=== PATIENT | female | born 1985 | race African-American/Black ===

== ENCOUNTER 2020-11-11 00:07 | Inpatient (IN) | payer BC ==
[2020-11-11] MEDS ORDERED: Sodium Chloride 0.9% 2.5 ML Syringe FLUSH PRN (00:59)
[2020-11-11] MEDS ORDERED: Lidocaine 1% 50 ML MDV INJECT PRN (00:59)
[2020-11-11] MEDS ORDERED: Butorphanol 1 MG/ML SDV IVPUSH PRN (00:59)
[2020-11-11] MEDS ORDERED: Misoprostol 200 MCG Tab PO PRN (00:59)
[2020-11-11] MEDS ORDERED: Terbutaline 1 MG/ML SDV SUBCUT PRN (00:59)
[2020-11-11] MEDS ORDERED: Water For Irrigation,Sterile 1,000 ML Container IRR PRN (00:59)
[2020-11-11] MEDS ORDERED: Nalbuphine 10 MG/1 ML Vial IVPUSH PRN (00:59)
[2020-11-11] MEDS ORDERED: Sodium Chloride 0.9% 10 ML SDV IV PRN (00:59)
[2020-11-11] MEDS ORDERED: Methylergonovine 0.2 MG/1 ML Amp IM PRN ×2 (00:59→10:54)
[2020-11-11] MEDS ORDERED: Sodium Chloride 0.9% 10 ML Syringe FLUSH PRN (00:59)
[2020-11-11] MEDS ORDERED: Tranexamic Acid 1,000 MG in Sodium Chloride 0.9% 100 ML IV PRN ×2 (00:59→10:54)
[2020-11-11] MEDS ORDERED: Carboprost Tromethamine 250 MCG/1 ML Amp IM PRN (00:59)
[2020-11-11] MEDS ORDERED: Oxytocin/0.9 % Sodium Chloride 30 UNIT/500 ML BAG IV SCH ×3 (01:00→08:45)
[2020-11-11] MEDS: Misoprostol 25 MCG (1/4 of 100 MCG) Tab VAG PRN ×2 (01:32→05:35)
[2020-11-11] MEDS: Misoprostol 25 MCG (1/4 of 100 MCG) Tab PO PRN ×2 (01:32→05:35)
[2020-11-11] MEDS: Lactated Ringers 1,000 ML IV SCH ×2 (05:43→08:58)
--- NOTE | 2020-11-11 08:03 | PCM.LDHP ---
L&D History of Present Illness - General Date of Service: 11/11/20 Admit Problem/Dx: Patient Status Order with Admit Dx/Problem 11/11/20 00:59 Patient Status [ADT] Routine Admission Diagnosis/Problem Admission Diagnosis/Problem 11/11/20 07:57 presenting to L&D at 38 1/7 weeks (DEMETRIO by LMP and confirmed with ultrasound) for IOL due to chronic hypertension well controlled with Labetolol 100 mg BID. She transferred to our practice from [place] at approximately 20 weeks. Patient has a history of IUFD at 28 weeks due to suspected preeclampsia and corresponding IUGR. This has been uneventful. B+Rubella immune, GBS negative. Vertex by [facility]. 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 - Infectious Disease History Infectious Disease History: Reports: Chicken Pox Social & Family History - Family History Family Medical History: Unobtainable - Tobacco Use Tobacco Use Status *Q: Never Tobacco User Second Hand Smoke Exposure: No H&P Review of Systems - Review of Systems: Review Of Systems: See Below General: Reports: No Symptoms HEENT: Reports: No Symptoms Pulmonary: Reports: No Symptoms Cardiovascular: Reports: No Symptoms Gastrointestinal: Reports: No Symptoms Genitourinary: Reports: No Symptoms Musculoskeletal: Reports: No Symptoms Skin: Reports: No Symptoms Psychiatric: Reports: No Symptoms Neurological: Reports: No Symptoms Hematologic/Lymphatic: Reports: No Symptoms Immunologic: Reports: No Symptoms L&D Exam - Exam Exam: See Below - Vital Signs Weight: 193 lb - OB Specific Movement: Active Heart Tones: Present Heart Rate (FHR) Variability: Moderate (6-25 bmp) Presentation: Vertex - Chow Score Chow Score Cervix Position: Posterior Chow Score Consistency: Medium Chow Score Effacement: 31-50% Chow Score Dilation: 1-2 cm Chow Score Infant's Station: -2 Chow Score Total: 4 - Exam General: Alert, Oriented, Cooperative Lungs: Normal Respiratory Effort Cardiovascular: Regular Rate, Regular Rhythm GI/Abdominal Exam: Soft, Non-Tender Rectal Exam: Deferred Genitourinary: Deferred Back Exam: Normal Inspection, Full Range of Motion Extremities: Normal Inspection, Normal Range of Motion, Non-Tender, Normal Capillary Refill Skin: Warm, Dry, Intact Neurological: Strength Equal Bilateral, Normal Gait, Normal Speech, Normal Tone, Sensation Intact Psychiatric: Alert, Normal Affect, Normal Mood - Patient Data Lab Results Last 24 hrs: Laboratory Results - last 24 hr 11/11/20 11/11/20 11/11/20 Range/Units 00:40 00:40 00:42 WBC 7.37 (4.0-11.0) K/uL RBC 4.41 (4.30-5.90) M/uL Hgb 11.0 L (12.0-16.0) g/dL Hct 34.1 L (36.0-46.0) % MCV 77.3 L (80.0-98.0) fL MCH 24.9 L (27.0-32.0) pg MCHC 32.3 (31.0-37.0) g/dL RDW Std Deviation 44.6 (28.0-62.0) fl RDW Coeff of Kristi 16 H (11.0-15.0) % Plt Count 322 (150-400) K/uL MPV 9.60 (7.40-12.00) fL SARS-CoV-2 RNA (PATRICK) NEGATIVE (NEGATIVE) Blood Type B POSITIVE Antibody Screen NEGATIVE Result Diagrams: 11/11/20 00:40 - Problem List (1) Supervision of normal IUP (intrauterine ) in multigravida SNOMED Code(s): 107119900, 689831312, 689208306 ICD Code: Z34.80 - ENCOUNTER FOR SUPRVSN OF NORMAL , UNSP TRIMESTER Status: Acute Priority: High Current Visit: Yes Qualifiers: Trimester: third trimester Qualified Code(s): Z34.83 - Encounter for supervision of other normal , third trimester (2) Chronic hypertension affecting SNOMED Code(s): 73210637 ICD Code: O10.919 - UNSP PRE-EXISTING HTN COMP , UNSP TRIMESTER Status: Acute Priority: High Current Visit: Yes (3) History of IUFD SNOMED Code(s): 09819434068798889 ICD Code: Z87.59 - PERSONAL HISTORY OF COMP OF PREG, CHLDBRTH AND THE PUERP Status: Acute Priority: High Current Visit: Yes Problem List Initiated/Reviewed/Updated: Yes Orders Last 24hrs: Active Orders 24 hr Category Date Time Status Patient Status [ADT] Routine ADT 11/11/20 00:59 Active Bedrest Bathroom Privileges [RC] ASDIRECTED Care 11/11/20 00:59 Active Communication Order [RC] ASDIRECTED Care 11/11/20 00:59 Active Communication Order [RC] ASDIRECTED Care 11/11/20 00:59 Active Communication Order [RC] ASDIRECTED Care 11/11/20 00:59 Active Heart Tones [RC] CONTINUOUS Care 11/11/20 00:59 Active Non Stress Test [RC] PER UNIT ROUTINE Care 11/11/20 00:59 Active May Shower [RC] ASDIRECTED Care 11/11/20 00:59 Active Notify Provider [RC] PRN Care 11/11/20 00:59 Active Notify Provider [RC] PRN Care 11/11/20 00:59 Active Notify Provider [RC] PRN Care 11/11/20 00:59 Active Notify Provider [RC] STAT Care 11/11/20 00:59 Active Oxygen Therapy [RC] ASDIRECTED Care 11/11/20 00:59 Active Up ad Evette [RC] ASDIRECTED Care 11/11/20 00:59 Active Vaginal Exam [RC] PRN Care 11/11/20 00:59 Active Vaginal Exam [RC] PRN Care 11/11/20 00:59 Active Vital Signs [RC] PER UNIT ROUTINE Care 11/11/20 00:59 Active Vital Signs [RC] PER UNIT ROUTINE Care 11/11/20 00:59 Active RPR (SYPHILIS SERO) W/ RFLX [REF] Routine Lab 11/11/20 00:40 Received Butorphanol [Stadol] Med 11/11/20 00:59 Active 1 mg IVPUSH Q1H PRN Carboprost Tromethamine [Hemabate DS] Med 11/11/20 00:59 Active 250 mcg IM ASDIRECTED PRN Lactated Ringers [Ringers, Lactated] 1,000 ml Med 11/11/20 01:00 Active IV ASDIRECTED Lidocaine 1% [Xylocaine 1%] Med 11/11/20 00:59 Active 50 ml INJECT ONETIME PRN Methylergonovine [Methergine] Med 11/11/20 00:59 Active 0.2 mg IM ASDIRECTED PRN Nalbuphine [Nubain] Med 11/11/20 00:59 Active 10 mg IVPUSH Q1H PRN Oxytocin/0.9 % Sodium Chloride [Oxytocin 30 Unit/500 ML Med 11/11/20 01:00 Active -NS] 30 unit in 500 ml IV TITRATE Oxytocin/0.9 % Sodium Chloride [Oxytocin 30 Unit/500 ML Med 11/11/20 01:00 Active -NS] 30 unit in 500 ml IV TITRATE Sodium Chloride 0.9% [Normal Saline] Med 11/11/20 00:59 Active 10 ml IV ASDIRECTED PRN Sodium Chloride 0.9% [Saline Flush] Med 11/11/20 00:59 Active 10 ml FLUSH ASDIRECTED PRN Sodium Chloride 0.9% [Saline Flush] Med 11/11/20 00:59 Active 2.5 ml FLUSH ASDIRECTED PRN Terbutaline [Brethine] Med 11/11/20 00:59 Active 0.25 mg SUBCUT ASDIRECTED PRN Tranexamic Acid [Cyklokapron] 1,000 mg Med 11/11/20 00:59 Active Sodium Chloride 0.9% [Normal Saline] 100 ml IV ONETIME Water For Irrigation,Sterile [Sterile Water for Med 11/11/20 00:59 Active Irrigation] 1,000 ml IRR ASDIRECTED PRN miSOPROStoL [Cytotec] Med 11/11/20 00:59 Active 200 mcg PO ONETIME PRN miSOPROStoL [Cytotec] Med 11/11/20 00:59 Active 25 mcg PO Q4H PRN miSOPROStoL [Cytotec] Med 11/11/20 00:59 Active 25 mcg VAG Q4H PRN Scalp Electrode [WOMSER] Per Unit Routine Oth 11/11/20 00:59 Ordered Medication Administration Instruction [OM.PC] Q3H Oth 11/11/20 01:00 Ordered Peripheral IV Insertion Adult [OM.PC] Routine Oth 11/11/20 00:59 Ordered Resuscitation Status Routine Resus Stat 11/11/20 00:59 Ordered Medication Orders Butorphanol Tartrate (Butorphanol 1 Mg/Ml Sdv) 1 mg IVPUSH Q1H PRN PRN Reason: Pain Carboprost Tromethamine (Carboprost Tromethamine 250 Mcg/1 Ml Amp) 250 mcg IM ASDIRECTED PRN PRN Reason: Post Hemorrhage Oxytocin/Sodium Chloride (Oxytocin 30 Unit/500 Ml-Ns) 30 unit in 500 mls @ 2 mls/hr IV TITRATE RABIA; Protocol Lactated Ringer's (Ringers, Lactated) 1,000 mls @ 150 mls/hr IV ASDIRECTED RABIA Last Admin: 11/11/20 05:43 Dose: 150 mls/hr Documented by: CORNELIUS Oxytocin/Sodium Chloride (Oxytocin 30 Unit/500 Ml-Ns) 30 unit in 500 mls @ 500 mls/hr IV TITRATE RABIA Tranexamic Acid 1,000 mg/ (Sodium Chloride) 110 mls @ 660 mls/hr IV ONETIME PRN PRN Reason: Bleeding Lidocaine HCl (Lidocaine 1% 50 Ml Mdv) 50 ml INJECT ONETIME PRN PRN Reason: Laceration repair Methylergonovine Maleate (Methylergonovine 0.2 Mg/1 Ml Amp) 0.2 mg IM ASDIRECTED PRN PRN Reason: Post Hemorrhage Misoprostol (Misoprostol 25 Mcg (1/4 Of 100 Mcg) Tab) 25 mcg VAG Q4H PRN PRN Reason: Cervical Ripening Last Admin: 11/11/20 05:35 Dose: 25 mcg Documented by: Admin: 11/11/20 01:32 Dose: 25 mcg Documented by: CORNELIUS Misoprostol (Misoprostol 200 Mcg Tab) 200 mcg PO ONETIME PRN PRN Reason: Post Hemorrhage Misoprostol (Misoprostol 25 Mcg (1/4 Of 100 Mcg) Tab) 25 mcg PO Q4H PRN PRN Reason: Cervical Ripening Last Admin: 11/11/20 05:35 Dose: 25 mcg Documented by: Admin: 11/11/20 01:32 Dose: 25 mcg Documented by: CORNELIUS Nalbuphine HCl (Nalbuphine 10 Mg/1 Ml Vial) 10 mg IVPUSH Q1H PRN PRN Reason: Pain (severe 7-10) Sodium Chloride (Sodium Chloride 0.9% 10 Ml Syringe) 10 ml FLUSH ASDIRECTED PRN PRN Reason: Keep Vein Open Sodium Chloride (Sodium Chloride 0.9% 2.5 Ml Syringe) 2.5 ml FLUSH ASDIRECTED P RN PRN Reason: Keep Vein Open Sodium Chloride (Sodium Chloride 0.9% 10 Ml Sdv) 10 ml IV ASDIRECTED PRN PRN Reason: IV Use Sterile Water (Water For Irrigation,Sterile 1,000 Ml Container) 1,000 ml IRR ASDIRECTED PRN PRN Reason: delivery Terbutaline Sulfate (Terbutaline 1 Mg/Ml Sdv) 0.25 mg SUBCUT ASDIRECTED PRN PRN Reason: Tacysystole Assessment/Plan Comment:: Admit A: presenting to L&D at 38 1/7 weeks (DMEETRIO by LMP and confirmed with ultrasound) for IOL due to chronic hypertension well controlled with Labetolol 100 mg BID. She transferred to our practice from [place] at approximately 20 weeks. Patient has a history of IUFD at 28 weeks due to suspected preeclampsia and corresponding IUGR. This has been uneventful. B+Rubella immune, GBS negative. Vertex by [facility]. Upon presentation, SVE noted 1cm/40%/-2, medium, posterior per nurse report P: Anticipate ; cytotec to pitocin PRN; epidural PRN; Dr. Fitch updated.
[2020-11-11] MEDS ORDERED: ceFAZolin 2 GM in Premix Bag 1 BAG IV ONE (08:42)
[2020-11-11] MEDS ORDERED: Citric Acid/Sodium Citrate Solution 30 ML Cup PO ONE (08:42)
[2020-11-11] MEDS ORDERED: Sodium Chloride 0.9% 20 ML ONE (08:48)
[2020-11-11] MEDS ORDERED: Oxytocin 10 Units/1 ML SDV ONE (08:48)
[2020-11-11] MEDS ORDERED: Morphine PF 10 MG/10 ML SDV ONE (08:48)
[2020-11-11] MEDS ORDERED: ceFAZolin 1 GM Vial ONE (08:48)
[2020-11-11] MEDS ORDERED: Famotidine 20 MG/2 ML SDV ONE (09:08)
--- NOTE | 2020-11-11 09:18 | PCM.PREANE ---
Preanesthetic Assessment - Procedure Proposed Procedure: - Anesthesia/Transfusion/Family Hx Anesthesia History: No Prior Anesthesia Transfusion History: No Prior Transfusion(s) - Review of Systems General: No Symptoms Pulmonary: No Symptoms Cardiovascular: No Symptoms Gastrointestinal: No Symptoms Neurological: No Symptoms Other: Reports: None - Physical Assessment NPO Status Date: 11/11/20 NPO Status Time: 00:00 Height: 5 ft 4.17 in Weight: 87.543 kg ASA Class: 2E Mental Status: Alert & Oriented x3 Airway Class: Mallampati = 1 Dentition: Reports: Normal Dentition ROM/Head Extension: Full Lungs: Clear to Auscultation, Normal Respiratory Effort Cardiovascular: Regular Rate, Regular Rhythm - Lab Values: Laboratory Last Values WBC 7.37 K/uL (4.0-11.0) 11/11/20 00:40 RBC 4.41 M/uL (4.30-5.90) 11/11/20 00:40 Hgb 11.0 g/dL (12.0-16.0) L 11/11/20 00:40 Hct 34.1 % (36.0-46.0) L 11/11/20 00:40 MCV 77.3 fL (80.0-98.0) L 11/11/20 00:40 MCH 24.9 pg (27.0-32.0) L 11/11/20 00:40 MCHC 32.3 g/dL (31.0-37.0) 11/11/20 00:40 RDW Std Deviation 44.6 fl (28.0-62.0) 11/11/20 00:40 RDW Coeff of Kristi 16 % (11.0-15.0) H 11/11/20 00:40 Plt Count 322 K/uL (150-400) 11/11/20 00:40 MPV 9.60 fL (7.40-12.00) 11/11/20 00:40 SARS-CoV-2 RNA (PATRICK) NEGATIVE (NEGATIVE) 11/11/20 00:42 Blood Type B POSITIVE 11/11/20 00:40 Antibody Screen NEGATIVE 11/11/20 00:40 - Allergies Allergies/Adverse Reactions: Allergies Allergy/AdvReac Type Severity Reaction Status Date / Time No Known Allergies Allergy Verified 11/05/20 15:16 - Anesthesia Plan Pre-Op Medication Ordered: Antacids, Beta Yanet Beta Yanet: Labetalol - Acknowledgements Anesthesia Type Planned: Spinal Pt an Appropriate Candidate for the Planned Anesthesia: Yes Alternatives and Risks of Anesthesia Discussed w Pt/Guardian: Yes Pt/Guardian Understands and Agrees with Anesthesia Plan: Yes PreAnesthesia Questionnaire - Past Health History Medical/Surgical History: Denies Medical/Surgical History HEENT History: Reports: None Cardiovascular History: Reports: Hypertension Respiratory History: Reports: None Gastrointestinal History: Reports: None Genitourinary History: Reports: None 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: , 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 Musculoskeletal History: Reports: None Neurological History: Reports: None Psychiatric History: Reports: None Endocrine/Metabolic History: Reports: None Immunologic History: Reports: None - Infectious Disease History Infectious Disease History: Reports: Chicken Pox - Past Surgical History Other Surgical History Comment: none - SUBSTANCE USE Tobacco Use Status *Q: Never Tobacco User Second Hand Smoke Exposure: No - HOME MEDS Home Medications: Home Meds Labetalol [Normodyne] 100 mg PO BID 11/11/20 [History] - CURRENT (IN HOUSE) MEDS Current Meds: Current Medications Butorphanol Tartrate (Butorphanol 1 Mg/Ml Sdv) 1 mg IVPUSH Q1H PRN PRN Reason: Pain Carboprost Tromethamine (Carboprost Tromethamine 250 Mcg/1 Ml Amp) 250 mcg IM ASDIRECTED PRN PRN Reason: Post Hemorrhage Oxytocin/Sodium Chloride (Oxytocin 30 Unit/500 Ml-Ns) 30 unit in 500 mls @ 2 mls/hr IV TITRATE RABIA; Protocol Lactated Ringer's (Ringers, Lactated) 1,000 mls @ 150 mls/hr IV ASDIRECTED RABIA Last Admin: 11/11/20 08:58 Dose: 999 mls/hr Documented by: Oxytocin/Sodium Chloride (Oxytocin 30 Unit/500 Ml-Ns) 30 unit in 500 mls @ 500 mls/hr IV TITRATE RABIA Tranexamic Acid 1,000 mg/ (Sodium Chloride) 110 mls @ 660 mls/hr IV ONETIME PRN PRN Reason: Bleeding Oxytocin/Sodium Chloride (Oxytocin 30 Unit/500 Ml-Ns) 30 unit in 500 mls @ 250 mls/hr IV TITRATE RABIA Lidocaine HCl (Lidocaine 1% 50 Ml Mdv) 50 ml INJECT ONETIME PRN PRN Reason: Laceration repair Methylergonovine Maleate (Methylergonovine 0.2 Mg/1 Ml Amp) 0.2 mg IM ASDIRECTED PRN PRN Reason: Post Hemorrhage Misoprostol (Misoprostol 25 Mcg (1/4 Of 100 Mcg) Tab) 25 mcg VAG Q4H PRN PRN Reason: Cervical Ripening Last Admin: 11/11/20 05:35 Dose: 25 mcg Documented by: Misoprostol (Misoprostol 200 Mcg Tab) 200 mcg PO ONETIME PRN PRN Reason: Post Hemorrhage Misoprostol (Misoprostol 25 Mcg (1/4 Of 100 Mcg) Tab) 25 mcg PO Q4H PRN PRN Reason: Cervical Ripening Last Admin: 11/11/20 05:35 Dose: 25 mcg Documented by: Nalbuphine HCl (Nalbuphine 10 Mg/1 Ml Vial) 10 mg IVPUSH Q1H PRN PRN Reason: Pain (severe 7-10) Sodium Chloride (Sodium Chloride 0.9% 10 Ml Syringe) 10 ml FLUSH ASDIRECTED PRN PRN Reason: Keep Vein Open Sodium Chloride (Sodium Chloride 0.9% 2.5 Ml Syringe) 2.5 ml FLUSH ASDIRECTED PRN PRN Reason: Keep Vein Open Sodium Chloride (Sodium Chloride 0.9% 10 Ml Sdv) 10 ml IV ASDIRECTED PRN PRN Reason: IV Use Sterile Water (Water For Irrigation,Sterile 1,000 Ml Container) 1,000 ml IRR ASDIRECTED PRN PRN Reason: delivery Terbutaline Sulfate (Terbutaline 1 Mg/Ml Sdv) 0.25 mg SUBCUT ASDIRECTED PRN PRN Reason: Tacysystole Discontinued Medications Cefazolin Sodium (Cefazolin 1 Gm Vial) Confirm Administered Dose 2 gm .ROUTE .STK-MED ONE Stop: 11/11/20 08:49 Citric Acid/Sodium Citrate (Citric Acid/Sodium Citrate Solution 30 Ml Cup) 30 ml PO ONETIME ONE Stop: 11/11/20 08:43 Famotidine (Famotidine 20 Mg/2 Ml Sdv) Confirm Administered Dose 20 mg .ROUTE .STK-MED ONE Stop: 11/11/20 09:09 Cefazolin Sodium/Dextrose 2 gm (/ Premix) 50 mls @ 100 mls/hr IV ONETIME ONE Stop: 11/11/20 09:11 Sodium Chloride (Normal Saline) Confirm Administered Dose 20 mls @ as directed .ROUTE .STK-MED ONE Stop: 11/11/20 08:49 Morphine Sulfate (Morphine Pf 10 Mg/10 Ml Sdv) Confirm Administered Dose 10 mg .ROUTE .STK-MED ONE Stop: 11/11/20 08:49 Oxytocin (Oxytocin 10 Units/1 Ml Sdv) Confirm Administered Dose 20 unit .ROUTE .STK-MED ONE Stop: 11/11/20 08:49
[2020-11-11] MEDS ORDERED: Octyl 2-Cyanoacrylate 1 Tube ONE (10:45)
[2020-11-11] MEDS ORDERED: Bisacodyl 10 MG Supp RECTAL PRN (10:54)
[2020-11-11] MEDS ORDERED: Lanolin 100% Cream 7 GM Tube TOP PRN (10:54)
[2020-11-11] MEDS ORDERED: Ondansetron 4 MG/2 ML SDV IVPUSH PRN (10:54)
[2020-11-11] MEDS ORDERED: Oxytocin 10 Units/1 ML SDV IM PRN (10:54)
[2020-11-11] MEDS ORDERED: Acetaminophen/oxyCODONE 325-5 MG Tab PO PRN (10:54)
[2020-11-11] MEDS ORDERED: Misoprostol 200 MCG Tab RECTAL PRN (10:54)
--- NOTE | 2020-11-11 10:58 | PCM.OPNOTE ---
- General Post-Op/Procedure Note Date of Surgery/Procedure: 11/11/20 Operative Procedure(s): Primary C/section. Pre Op Diagnosis: IUPterm Breech presentation. Post-Op Diagnosis: Same Anesthesia Technique: Spinal Primary Surgeon: Ryan Fitch Fuel Injection Servicer: Sepideh Devlin EBL in mLs: 900 Complications: None Condition: Good Free Text/Narrative:: Intake & Output 11/10/20 11/11/20 11/11/20 22:59 06:59 14:59 Intake Total 1000 Balance 1000
[2020-11-11] MEDS ORDERED: Lactated Ringers 1,000 ML IV SCH (11:00)
[2020-11-11] MEDS: Ketorolac 30 MG/ML SDV IVPUSH SCH ×3 (11:25→23:16)
--- NOTE | 2020-11-11 11:35 | PCM.POSTAN ---
POST ANESTHESIA ASSESSMENT - MENTAL STATUS Mental Status: Alert, Oriented - VITAL SIGNS Vital Signs: see PIP charting - RESPIRATORY Respiratory Status: Respiratory Rate WNL, Airway Patent, O2 Saturation Stable - CARDIOVASCULAR CV Status: Pulse Rate WNL, Blood Pressure Stable - GASTROINTESTINAL GI Status: No Symptoms - PAIN Pain Score: 0 - POST OP HYDRATION Hydration Status: Adequate & Stable
[2020-11-11] MEDS ORDERED: Nalbuphine 10 MG/1 ML Vial IM PRN (11:43)
[2020-11-11] MEDS: diphenhydrAMINE 50 MG/ML SDV IVPUSH PRN (14:26)
[2020-11-11] MEDS: Docusate Sodium 100 MG Cap PO SCH (21:31)
[2020-11-12] MEDS: Ketorolac 30 MG/ML SDV IVPUSH SCH ×2 (04:56→10:51)
[2020-11-12] MEDS: diphenhydrAMINE 50 MG/ML SDV IVPUSH PRN (05:04)
[2020-11-12] MEDS ORDERED: Simethicone 80 MG Tab.Chew PO ONE (08:30)
[2020-11-12] MEDS: Docusate Sodium 100 MG Cap PO SCH ×2 (08:49→21:39)
--- NOTE | 2020-11-12 09:26 | PCM.PNPP ---
- General Info Date of Service: 11/12/20 Functional Status: Reports: Pain Controlled - Review of Systems General: Reports: No Symptoms HEENT: Reports: No Symptoms Pulmonary: Reports: No Symptoms Cardiovascular: Reports: No Symptoms Gastrointestinal: Reports: No Symptoms Genitourinary: Reports: No Symptoms Musculoskeletal: Reports: No Symptoms Skin: Reports: No Symptoms Neurological: Reports: No Symptoms Psychiatric: Reports: No Symptoms - General Info Date of Service: 11/12/20 - Patient Data Vital Signs - Most Recent: Last Vital Signs Temp 36.4 C 11/12/20 07:53 Pulse 92 11/12/20 07:53 Resp 18 11/12/20 08:51 BP 119/70 11/12/20 07:53 Pulse Ox 99 11/12/20 08:51 Weight - Most Recent: 87.543 kg I&O - Last 24 Hours: Intake & Output 11/11/20 11/12/20 11/12/20 22:59 06:59 14:59 Output Total 900 1300 500 Balance -900 -1300 -500 Lab Results - Last 24 Hours: Laboratory Results - last 24 hr 11/11/20 11/12/20 Range/Units 00:40 05:49 Hgb 7.5 L (12.0-16.0) g/dL Hct 23.3 L (36.0-46.0) % Antibody Screen NEGATIVE Med Orders - Current: Current Medications Bisacodyl (Bisacodyl 10 Mg Supp) 10 mg RECTAL ONETIME PRN PRN Reason: Constipation Butorphanol Tartrate (Butorphanol 1 Mg/Ml Sdv) 1 mg IVPUSH Q1H PRN PRN Reason: Pain Carboprost Tromethamine (Carboprost Tromethamine 250 Mcg/1 Ml Amp) 250 mcg IM ASDIRECTED PRN PRN Reason: Post Hemorrhage Diphenhydramine HCl (Diphenhydramine 50 Mg/Ml Sdv) 25 mg IVPUSH Q6H PRN PRN Reason: Itching or Nausea Last Admin: 11/12/20 05:04 Dose: 25 mg Documented by: Docusate Sodium (Docusate Sodium 100 Mg Cap) 100 mg PO BID RABIA Last Admin: 11/12/20 08:49 Dose: 100 mg Documented by: Emollient Ointment (Lanolin 100% Cream 7 Gm Tube) 0 gm TOP ASDIRECTED PRN PRN Reason: Sore Nipples Last Admin: 11/11/20 14:29 Dose: 1 tube Documented by: Oxytocin/Sodium Chloride (Oxytocin 30 Unit/500 Ml-Ns) 30 unit in 500 mls @ 2 mls/hr IV TITRATE [facility] [place]; Protocol Lactated Ringer's (Ringers, Lactated) 1,000 mls @ 150 mls/hr IV ASDIRECTED [facility] [place] Last Admin: 11/11/20 08:58 Dose: 999 mls/hr Documented by: Oxytocin/Sodium Chloride (Oxytocin 30 Unit/500 Ml-Ns) 30 unit in 500 mls @ 500 mls/hr IV TITRATE [facility] [place] Tranexamic Acid 1,000 mg/ (Sodium Chloride) 110 mls @ 660 mls/hr IV ONETIME PRN PRN Reason: Bleeding Oxytocin/Sodium Chloride (Oxytocin 30 Unit/500 Ml-Ns) 30 unit in 500 mls @ 250 mls/hr IV TITRATE [facility] [place] Lactated Ringer's (Ringers, Lactated) 1,000 mls @ 125 mls/hr IV ASDIRECTED [facility] [place] Last Admin: 11/11/20 13:28 Dose: 125 mls/hr Documented by: Tranexamic Acid 1,000 mg/ (Sodium Chloride) 110 mls @ 660 mls/hr IV ONETIME PRN PRN Reason: Bleeding Ibuprofen (Ibuprofen 800 Mg Tab) 800 mg PO Q8H PRN PRN Reason: mild pain or fever Ketorolac Tromethamine (Ketorolac 30 Mg/Ml Sdv) 30 mg IVPUSH Q6H [facility] [place] Stop: 11/12/20 11:01 Last Admin: 11/12/20 04:56 Dose: 30 mg Documented by: Lidocaine HCl (Lidocaine 1% 50 Ml Mdv) 50 ml INJECT ONETIME PRN PRN Reason: Laceration repair Methylergonovine Maleate (Methylergonovine 0.2 Mg/1 Ml Amp) 0.2 mg IM ASDIRECTED PRN PRN Reason: Post Hemorrhage Methylergonovine Maleate (Methylergonovine 0.2 Mg/1 Ml Amp) 0.2 mg IM ONETIME PRN PRN Reason: Excessive Vaginal Bleeding Misoprostol (Misoprostol 25 Mcg (1/4 Of 100 Mcg) Tab) 25 mcg VAG Q4H PRN PRN Reason: Cervical Ripening Last Admin: 11/11/20 05:35 Dose: 25 mcg Documented by: Misoprostol (Misoprostol 200 Mcg Tab) 200 mcg PO ONETIME PRN PRN Reason: Post Hemorrhage Misoprostol (Misoprostol 25 Mcg (1/4 Of 100 Mcg) Tab) 25 mcg PO Q4H PRN PRN Reason: Cervical Ripening Last Admin: 11/11/20 05:35 Dose: 25 mcg Documented by: Misoprostol (Misoprostol 200 Mcg Tab) 1,000 mcg RECTAL ONETIME PRN PRN Reason: excessive bleeding Nalbuphine HCl (Nalbuphine 10 Mg/1 Ml Vial) 10 mg IVPUSH Q1H PRN PRN Reason: Pain (severe 7-10) Ondansetron HCl (Ondansetron 4 Mg/2 Ml Sdv) 4 mg IVPUSH Q4H PRN PRN Reason: Nausea/Vomiting Oxycodone/Acetaminophen (Acetaminophen/Oxycodone 325-5 Mg Tab) 1 tab PO Q4H PRN PRN Reason: Pain (moderate 4-6) Oxycodone/Acetaminophen (Acetaminophen/Oxycodone 325-5 Mg Tab) 2 tab PO Q4H PRN PRN Reason: Pain (moderate 4-6) Oxytocin (Oxytocin 10 Units/1 Ml Sdv) 10 unit IM ASDIRECTED PRN PRN Reason: Excessive Vaginal Bleeding Sodium Chloride (Sodium Chloride 0.9% 10 Ml Syringe) 10 ml FLUSH ASDIRECTED PRN PRN Reason: Keep Vein Open Sodium Chloride (Sodium Chloride 0.9% 2.5 Ml Syringe) 2.5 ml FLUSH ASDIRECTED PRN PRN Reason: Keep Vein Open Sodium Chloride (Sodium Chloride 0.9% 10 Ml Sdv) 10 ml IV ASDIRECTED PRN PRN Reason: IV Use Sterile Water (Water For Irrigation,Sterile 1,000 Ml Container) 1,000 ml IRR ASDIRECTED PRN PRN Reason: delivery Terbutaline Sulfate (Terbutaline 1 Mg/Ml Sdv) 0.25 mg SUBCUT ASDIRECTED PRN PRN Reason: Tacysystole Discontinued Medications Cefazolin Sodium (Cefazolin 1 Gm Vial) Confirm Administered Dose 2 gm .ROUTE .STK-MED ONE Stop: 11/11/20 08:49 Citric Acid/Sodium Citrate (Citric Acid/Sodium Citrate Solution 30 Ml Cup) 30 ml PO ONETIME ONE Stop: 11/11/20 08:43 Last Admin: 11/11/20 09:15 Dose: 30 ml Documented by: Famotidine (Famotidine 20 Mg/2 Ml Sdv) Confirm Administered Dose 20 mg .ROUTE .STK-MED ONE Stop: 11/11/20 09:09 Cefazolin Sodium/Dextrose 2 gm (/ Premix) 50 mls @ 100 mls/hr IV ONETIME ONE Stop: 11/11/20 09:11 Last Admin: 11/11/20 19:50 Dose: Not Given Documented by: Sodium Chloride (Normal Saline) Confirm Administered Dose 20 mls @ as directed .ROUTE .STK-MED ONE Stop: 11/11/20 08:49 Morphine Sulfate (Morphine Pf 10 Mg/10 Ml Sdv) Confirm Administered Dose 10 mg .ROUTE .STK-MED ONE Stop: 11/11/20 08:49 Nalbuphine HCl (Nalbuphine 10 Mg/1 Ml Vial) 5 mg IM Q3H PRN PRN Reason: Itching Octyl Cyanoacrylate (Octyl 2-Cyanoacrylate 1 Tube) Confirm Administered Dose 1 applic .ROUTE .STK-MED ONE Stop: 11/11/20 10:46 Last Admin: 11/11/20 19:50 Dose: Not Given Documented by: Oxytocin (Oxytocin 10 Units/1 Ml Sdv) Confirm Administered Dose 20 unit .ROUTE .STK-MED ONE Stop: 11/11/20 08:49 Simethicone (Simethicone 80 Mg Tab.Chew) 160 mg PO ONETIME ONE Stop: 11/12/20 08:31 Last Admin: 11/12/20 08:48 Dose: 160 mg Documented by: - Interaction Infant Disposition, : in Room with Family Infant Interaction: Holding Infant Feeding: Attempted ; Nursed Fair/Poor Support Person: , Friend - Recovery Exam Fundal Tone: Firm Fundal Level: At Umbilicus Fundal Placement: Midline Lochia Amount: Scant, Small Lochia Color: Rubra/Red Perineum Description: Intact, Minimal Bruising/Swelling Episiotomy/Laceration: None Bladder Status: Indwelling Catheter in Place Urinary Elimination: Indwelling Catheter - Exam General: Alert, Oriented HEENT: Pupils Equal Neck: Supple Lungs: Clear to Auscultation, Normal Respiratory Effort Cardiovascular: Regular Rate, Regular Rhythm GI/Abdominal Exam: Normal Bowel Sounds, Soft, Non-Tender, No Organomegaly, No Distention, No Abnormal Bruit, No Mass, Pelvis Stable Extremities: Normal Inspection, Normal Range of Motion, Non-Tender, No Pedal Edema, Normal Capillary Refill Skin: Warm, Dry, Intact Wound/Incisions: Healing Well Neurological: No New Focal Deficit Psy/Mental Status: Alert, Normal Affect, Normal Mood - Problem List Review Problem List Initiated/Reviewed/Updated: Yes - My Orders Last 24 Hours: My Active Orders 11/11/20 08:42 Up ad Evette [RC] ASDIRECTED Schedule Procedure [COMM] Per Unit Routine 11/11/20 08:45 Oxytocin/0.9 % Sodium Chloride [Oxytocin 30 Unit/500 ML-NS] 30 unit in 500 ml IV TITRATE 11/11/20 10:54 Patient Status [ADT] Routine Ambulate [RC] PER UNIT ROUTINE May Shower [RC] ASDIRECTED RT Incentive Spirometry [RC] Q2HWA Vital Signs [RC] Q1H Acetaminophen/oxyCODONE [Percocet 325-5 MG] 1 tab PO Q4H PRN Acetaminophen/oxyCODONE [Percocet 325-5 MG] 2 tab PO Q4H PRN Lanolin [Lansinoh HPA] See Dose Instructions TOP ASDIRECTED PRN Methylergonovine [Methergine] 0.2 mg IM ONETIME PRN Ondansetron [Zofran] 4 mg IVPUSH Q4H PRN Oxytocin [Pitocin] 10 unit IM ASDIRECTED PRN Tranexamic Acid [Cyklokapron] 1,000 mg Sodium Chloride 0.9% [Normal Saline] 100 ml IV ONETIME bisacodyL [Dulcolax] 10 mg RECTAL ONETIME PRN diphenhydrAMINE [Benadryl] 25 mg IVPUSH Q6H PRN miSOPROStoL [Cytotec] 1,000 mcg RECTAL ONETIME PRN Assess Lochia [WOMSER] Per Unit Routine Assess Uterine Involution [WOMSER] Per Unit Routine Breast Pump [WOMSER] Per Unit Routine Peripheral IV Discontinue [OM.PC] Routine Sequential Compression Device [OM.PC] Per Unit Routine 11/11/20 10:55 Antiembolic Devices [RC] PER UNIT ROUTINE 11/11/20 11:00 Ketorolac [Toradol] 30 mg IVPUSH Q6H Lactated Ringers [Ringers, Lactated] 1,000 ml IV ASDIRECTED 11/11/20 21:00 Docusate Sodium [Colace] 100 mg PO BID 11/12/20 17:00 Ibuprofen [Motrin] 800 mg PO Q8H PRN - Assessment Assessment:: The patient hematocrit this morning is a 23+ she is not orthostatics and she is not hypotensive. We'll watch her today and if she need a blood transfusion we will transfuse her other later today or tomorrow - Plan Plan:: Admit A: presenting to L&D at 38 1/7 weeks (DEMETRIO by LMP and confirmed with ultrasound) for IOL due to chronic hypertension well controlled with Labetolol 1 00 mg BID. She transferred to our practice from [place] at approximately 20 weeks. Patient has a history of IUFD at 28 weeks due to suspected preeclampsia and corresponding IUGR. This has been uneventful. B+Rubella immune, GBS negative. Vertex by [facility]. Upon presentation, SVE noted 1cm/40%/-2, medium, posterior per nurse report P: Anticipate ; cytotec to pitocin PRN; epidural PRN; Dr. Fitch updated.
--- NOTE | 2020-11-12 11:36 | OR ---
SURGEON: Ryan Fitch MD DATE OF PROCEDURE: 11/11/2020 PREOPERATIVE DIAGNOSES: Intrauterine , is term, breech presentation, declined external version. POSTOPERATIVE DIAGNOSES: Intrauterine , is term, breech presentation, declined external version. OPERATION PERFORMED: Primary low transverse section. PRIMARY SURGEON: Ryan Fitch MD DIAGNOSTIC TECH: Sepideh Devlin, certified nurse welt butter hand. ANESTHESIA: Spinal, Hay Rossi and Dr. Ferreira. ESTIMATED BLOOD LOSS: 900 mL. COMPLICATIONS: None. FINDINGS: Female fetus in complete breech presentation. INDICATIONS FOR SURGERY: This patient is 35, is primigravida. She is followed in our clinic jointly by myself and our midwifery service. She is admitted for supposedly elective induction because of advanced maternal age, and the patient upon examination this morning by me is found to be in a breech presentation. Bedside ultrasound confirmed that she is a complete breech. The patient has declined external version, so we will proceed with a primary low transverse section. PROCEDURE IN DETAIL: The patient brought to the OR, properly identified. After adequate level of spinal anesthesia, the patient identified and the patient was prepped and draped in sterile fashion as usual. Low transverse Pfannenstiel skin incision was done. Luan fascia and rectus fascia opened in direction of the incision. The 2 recti muscles were . Peritoneal cavity was entered, and the bladder flap was raised in the usual manner pushing the bladder away from the lower uterine segment. Low transverse uterine incision was done and extended manually with hand. Fetus was in a complete breech presentation, delivered without any problem, cried immediately, and handed to the resuscitating team that is headed by the senior marketing manager Dr. Walker, and then the placenta delivered spontaneous, complete, and intact and repair of the lower uterine segment was done with 2-0 Vicryl continuous interlocking in 2 layers. Reperitonealization done with 3-0 Vicryl continuous. Inspection of the uterine scar showed there was no oozing, no bleeding. Then, the peritoneal cavity was evacuated completely from all blood and blood clot and closed with 3-0 Vicryl continuous. The rectus fascia was closed with #1 PDS continuous, Luan fascia with 3-0 Vicryl continuous. The skin was closed with 3-0 with a See needle in a subcuticular fashion and Dermabond. Instrument and sponge counts were correct. The patient tolerated the procedure well, went to recovery room in stable general condition. JURGEN / MATTEO /[id number]
--- NOTE | 2020-11-12 11:39 | PCM48HPAN ---
Post Anesthesia Note - EVALUATION WITHIN 48HRS OF ANESTHETIC Vital Signs in Normal Range: Yes Patient Participated in Evaluation: Yes Respiratory Function Stable: Yes Airway Patent: Yes Cardiovascular Function Stable: Yes Hydration Status Stable: Yes Pain Control Satisfactory: Yes Nausea and Vomiting Control Satisfactory: Yes Mental Status Recovered: Yes Vital Signs: Last Vital Signs Temp 97.5 F 11/12/20 07:53 Pulse 92 11/12/20 07:53 Resp 18 11/12/20 09:50 BP 119/70 11/12/20 07:53 Pulse Ox 99 11/12/20 09:50
[2020-11-12] MEDS: Acetaminophen/oxyCODONE 325-5 MG Tab PO PRN ×2 (13:41→21:40)
[2020-11-12] MEDS: Ibuprofen 800 MG Tab PO PRN (18:25)
[2020-11-13] MEDS: Acetaminophen/oxyCODONE 325-5 MG Tab PO PRN (00:07)
[2020-11-13] MEDS: Ibuprofen 800 MG Tab PO PRN (06:29)
--- NOTE | 2020-11-13 08:12 | PCM.PNPP ---
- General Info Date of Service: 11/13/20 Functional Status: Reports: Pain Controlled - Review of Systems General: Reports: No Symptoms HEENT: Reports: No Symptoms Pulmonary: Reports: No Symptoms Cardiovascular: Reports: No Symptoms Gastrointestinal: Reports: No Symptoms Genitourinary: Reports: No Symptoms Musculoskeletal: Reports: No Symptoms Skin: Reports: No Symptoms Neurological: Reports: No Symptoms Psychiatric: Reports: No Symptoms - General Info Date of Service: 11/13/20 - Patient Data Vital Signs - Most Recent: Last Vital Signs Temp 37.0 C 11/12/20 20:22 Pulse 115 H 11/12/20 20:22 Resp 18 11/12/20 20:22 BP 116/71 11/12/20 20:22 Pulse Ox 100 11/12/20 20:22 Weight - Most Recent: 87.543 kg Lab Results - Last 24 Hours: Laboratory Results - last 24 hr 11/11/20 Range/Units 00:40 RPR Non-Reac (Non-Reac) Med Orders - Current: Current Medications Bisacodyl (Bisacodyl 10 Mg Supp) 10 mg RECTAL ONETIME PRN PRN Reason: Constipation Butorphanol Tartrate (Butorphanol 1 Mg/Ml Sdv) 1 mg IVPUSH Q1H PRN PRN Reason: Pain Carboprost Tromethamine (Carboprost Tromethamine 250 Mcg/1 Ml Amp) 250 mcg IM ASDIRECTED PRN PRN Reason: Post Hemorrhage Diphenhydramine HCl (Diphenhydramine 50 Mg/Ml Sdv) 25 mg IVPUSH Q6H PRN PRN Reason: Itching or Nausea Last Admin: 11/12/20 05:04 Dose: 25 mg Documented by: Docusate Sodium (Docusate Sodium 100 Mg Cap) 100 mg PO BID RABIA Last Admin: 11/12/20 21:39 Dose: 100 mg Documented by: Emollient Ointment (Lanolin 100% Cream 7 Gm Tube) 0 gm TOP ASDIRECTED PRN PRN Reason: Sore Nipples Last Admin: 11/11/20 14:29 Dose: 1 tube Documented by: Oxytocin/Sodium Chloride (Oxytocin 30 Unit/500 Ml-Ns) 30 unit in 500 mls @ 2 mls/hr IV TITRATE [facility]; Protocol Lactated Ringer's (Ringers, Lactated) 1,000 mls @ 150 mls/hr IV ASDIRECTED [facility] Last Admin: 11/11/20 08:58 Dose: 999 mls/hr Documented by: Oxytocin/Sodium Chloride (Oxytocin 30 Unit/500 Ml-Ns) 30 unit in 500 mls @ 500 mls/hr IV TITRATE [facility] Tranexamic Acid 1,000 mg/ (Sodium Chloride) 110 mls @ 660 mls/hr IV ONETIME PRN PRN Reason: Bleeding Oxytocin/Sodium Chloride (Oxytocin 30 Unit/500 Ml-Ns) 30 unit in 500 mls @ 250 mls/hr IV TITRATE [facility] Lactated Ringer's (Ringers, Lactated) 1,000 mls @ 125 mls/hr IV ASDIRECTED [facility] Last Admin: 11/11/20 13:28 Dose: 125 mls/hr Documented by: Tranexamic Acid 1,000 mg/ (Sodium Chloride) 110 mls @ 660 mls/hr IV ONETIME PRN PRN Reason: Bleeding Ibuprofen (Ibuprofen 800 Mg Tab) 800 mg PO Q8H PRN PRN Reason: mild pain or fever Last Admin: 11/13/20 06:29 Dose: 800 mg Documented by: Lidocaine HCl (Lidocaine 1% 50 Ml Mdv) 50 ml INJECT ONETIME PRN PRN Reason: Laceration repair Methylergonovine Maleate (Methylergonovine 0.2 Mg/1 Ml Amp) 0.2 mg IM ASDIRECTED PRN PRN Reason: Post Hemorrhage Methylergonovine Maleate (Methylergonovine 0.2 Mg/1 Ml Amp) 0.2 mg IM ONETIME PRN PRN Reason: Excessive Vaginal Bleeding Misoprostol (Misoprostol 25 Mcg (1/4 Of 100 Mcg) Tab) 25 mcg VAG Q4H PRN PRN Reason: Cervical Ripening Last Admin: 11/11/20 05:35 Dose: 25 mcg Documented by: Misoprostol (Misoprostol 200 Mcg Tab) 200 mcg PO ONETIME PRN PRN Reason: Post Hemorrhage Misoprostol (Misoprostol 25 Mcg (1/4 Of 100 Mcg) Tab) 25 mcg PO Q4H PRN PRN Reason: Cervical Ripening Last Admin: 11/11/20 05:35 Dose: 25 mcg Documented by: Misoprostol (Misoprostol 200 Mcg Tab) 1,000 mcg RECTAL ONETIME PRN PRN Reason: excessive bleeding Nalbuphine HCl (Nalbuphine 10 Mg/1 Ml Vial) 10 mg IVPUSH Q1H PRN PRN Reason: Pain (severe 7-10) Ondansetron HCl (Ondansetron 4 Mg/2 Ml Sdv) 4 mg IVPUSH Q4H PRN PRN Reason: Nausea/Vomiting Oxycodone/Acetaminophen (Acetaminophen/Oxycodone 325-5 Mg Tab) 1 tab PO Q4H PRN PRN Reason: Pain (moderate 4-6) Last Admin: 11/13/20 00:07 Dose: 1 tab Documented by: Oxycodone/Acetaminophen (Acetaminophen/Oxycodone 325-5 Mg Tab) 2 tab PO Q4H PRN PRN Reason: Pain (moderate 4-6) Oxytocin (Oxytocin 10 Units/1 Ml Sdv) 10 unit IM ASDIRECTED PRN PRN Reason: Excessive Vaginal Bleeding Sodium Chloride (Sodium Chloride 0.9% 10 Ml Syringe) 10 ml FLUSH ASDIRECTED PRN PRN Reason: Keep Vein Open Sodium Chloride (Sodium Chloride 0.9% 2.5 Ml Syringe) 2.5 ml FLUSH ASDIRECTED PRN PRN Reason: Keep Vein Open Sodium Chloride (Sodium Chloride 0.9% 10 Ml Sdv) 10 ml IV ASDIRECTED PRN PRN Reason: IV Use Sterile Water (Water For Irrigation,Sterile 1,000 Ml Container) 1,000 ml IRR ASDIRECTED PRN PRN Reason: delivery Terbutaline Sulfate (Terbutaline 1 Mg/Ml Sdv) 0.25 mg SUBCUT ASDIRECTED PRN PRN Reason: Tacysystole Discontinued Medications Cefazolin Sodium (Cefazolin 1 Gm Vial) Confirm Administered Dose 2 gm .ROUTE .STK-MED ONE Stop: 11/11/20 08:49 Citric Acid/Sodium Citrate (Citric Acid/Sodium Citrate Solution 30 Ml Cup) 30 ml PO ONETIME ONE Stop: 11/11/20 08:43 Last Admin: 11/11/20 09:15 Dose: 30 ml Documented by: Famotidine (Famotidine 20 Mg/2 Ml Sdv) Confirm Administered Dose 20 mg .ROUTE .STK-MED ONE Stop: 11/11/20 09:09 Cefazolin Sodium/Dextrose 2 gm (/ Premix) 50 mls @ 100 mls/hr IV ONETIME ONE Stop: 11/11/20 09:11 Last Admin: 11/11/20 19:50 Dose: Not Given Documented by: Sodium Chloride (Normal Saline) Confirm Administered Dose 20 mls @ as directed .ROUTE .STK-MED ONE Stop: 11/11/20 08:49 Ketorolac Tromethamine (Ketorolac 30 Mg/Ml Sdv) 30 mg IVPUSH Q6H [facility] Stop: 11/12/20 11:01 Last Admin: 11/12/20 10:51 Dose: 30 mg Documented by: Morphine Sulfate (Morphine Pf 10 Mg/10 Ml Sdv) Confirm Administered Dose 10 mg .ROUTE .STK-MED ONE Stop: 11/11/20 08:49 Nalbuphine HCl (Nalbuphine 10 Mg/1 Ml Vial) 5 mg IM Q3H PRN PRN Reason: Itching Octyl Cyanoacrylate (Octyl 2-Cyanoacrylate 1 Tube) Confirm Administered Dose 1 applic .ROUTE .STK-MED ONE Stop: 11/11/20 10:46 Last Admin: 11/11/20 19:50 Dose: Not Given Documented by: Oxytocin (Oxytocin 10 Units/1 Ml Sdv) Confirm Administered Dose 20 unit .ROUTE .STK-MED ONE Stop: 11/11/20 08:49 Simethicone (Simethicone 80 Mg Tab.Chew) 160 mg PO ONETIME ONE Stop: 11/12/20 08:31 Last Admin: 11/12/20 08:48 Dose: 160 mg Documented by: - Interaction Infant Disposition, : in Room with Family Interaction: Holding Infant Infant Feeding: Attempted ; Nursed Fair/Poor Support Person: , Friend - Recovery Exam Fundal Tone: Firm Fundal Level: At Umbilicus Fundal Placement: Midline Lochia Amount: Scant Lochia Color: Rubra/Red Perineum Description: Intact, Minimal Bruising/Swelling Episiotomy/Laceration: None Bladder Status: Nonpalpable Urinary Elimination: Voided - Exam General: Alert, Oriented HEENT: Pupils Equal Neck: Supple Lungs: Clear to Auscultation, Normal Respiratory Effort Cardiovascular: Regular Rate, Regular Rhythm GI/Abdominal Exam: Normal Bowel Sounds, Soft, Non-Tender, No Organomegaly, No Distention, No Abnormal Bruit, No Mass, Pelvis Stable Extremities: Normal Inspection, Normal Range of Motion, Non-Tender, No Pedal Edema, Normal Capillary Refill Skin: Warm, Dry, Intact Wound/Incisions: Healing Well Neurological: No New Focal Deficit Psy/Mental Status: Alert, Normal Affect, Normal Mood - Problem List Review Problem List Initiated/Reviewed/Updated: Yes - My Orders Last 24 Hours: My Active Orders 11/12/20 17:00 Ibuprofen [Motrin] 800 mg PO Q8H PRN - Assessment Assessment:: The patient hematocrit this morning is a 23+ she is not orthostatics and she is not hypotensive. We'll watch her today and if she need a blood transfusion we will transfuse her other later today or tomorrow - Plan Plan:: Admit A: presenting to L&D at 38 1/7 weeks (DEMETRIO by LMP and confirmed with ultrasound) for IOL due to chronic hypertension well controlled with Labetolol 100 mg BID. She transferred to our practice from [place] at approximately 20 weeks. Patient has a history of IUFD at 28 weeks due to suspected preeclampsia and corresponding IUGR. This has been uneventful. B+Rubella immune, GBS negative. Vertex by [facility]. Upon presentation, SVE noted 1cm/40%/-2, medium, posterior per nurse report P: Anticipate ; cytotec to pitocin PRN; epidural PRN; Dr. Fitch updated.
[2020-11-13] MEDS: Docusate Sodium 100 MG Cap PO SCH (09:40)
== END 2020-11-13 13:20 | disposition home or self-care (01) | DRG 540 ==
LOC: MW.OBCHECK 00:07 → MW.OB 00:08 → MW.OBCHECK 00:59 → MW.OB 00:59 → OBSVTOIN 10:20 → MW.OB 15:03
PROVIDERS: ADMIT Obstetrics & Gynecology; ATTEND Obstetrics & Gynecology
PROC: 10D00Z1 Extraction of Products of Conception, Low, Open Approach (ICD-10-PCS; principal; 2020-11-11)
DX: O10.92 Unspecified pre-existing hypertension complicating childbirth (principal); O32.1XX0 Maternal care for breech presentation, not applicable or unspecified; Z37.0 Single live birth; Z3A.38 38 weeks gestation of pregnancy
CPT/HCPCS: 36415; 51702; 59025; 85014; 85018; 85027; 86592; 86850; 86900; 86901; A9270-GY; J0690; J1200; J1885; J2270; J2590; J3490; J7120; U0002

== ENCOUNTER 2020-11-20 08:12 | Day surgery (SDC) | payer BC ==
[~2020-11-20 08:12] MED LIST: Lactated Ringers 1,000 ML IV SCH
[2020-11-20] MEDS ORDERED: Propofol 200 MG/20 ML SDV ONE (08:50)
[2020-11-20] MEDS ORDERED: Ondansetron 4 MG/2 ML SDV ONE (08:50)
[2020-11-20] MEDS ORDERED: fentaNYL 100 MCG/2 ML SDV ONE (08:50)
[2020-11-20] MEDS ORDERED: Dexamethasone 4 MG/ML 5 ML MDV ONE (08:50)
[2020-11-20] MEDS ORDERED: Lidocaine 2% 5 ML SDV ONE (08:50)
--- NOTE | 2020-11-20 09:04 | PCM.PREANE ---
Preanesthetic Assessment - Anesthesia/Transfusion/Family Hx Anesthesia History: No Prior Anesthesia Other Type of Anesthesia Reaction Comment: "itching after c/section" Family History of Anesthesia Reaction: No Transfusion History: No Prior Transfusion(s) - Review of Systems General: No Symptoms Pulmonary: No Symptoms Cardiovascular: No Symptoms Gastrointestinal: No Symptoms Neurological: No Symptoms Other: Reports: None - Physical Assessment NPO Status Date: 11/20/20 NPO Status Time: 00:01 Vital Signs: Last Vital Signs Temp 97.0 F 11/20/20 08:19 Pulse 98 11/20/20 08:19 Resp 15 11/20/20 08:19 BP 137/88 11/20/20 08:19 Pulse Ox 100 11/20/20 08:19 Height: 5 ft 4 in Weight: 183 lb ASA Class: 2 Mental Status: Alert & Oriented x3 Airway Class: Mallampati = 2 Dentition: Reports: Normal Dentition ROM/Head Extension: Full Lungs: Clear to Auscultation, Normal Respiratory Effort Cardiovascular: Regular Rate, Regular Rhythm - Allergies Allergies/Adverse Reactions: Allergies Allergy/AdvReac Type Severity Reaction Status Date / Time No Known Allergies Allergy Verified 11/19/20 07:56 - Anesthesia Plan Pre-Op Medication Ordered: None - Acknowledgements Anesthesia Type Planned: General Anesthesia Pt an Appropriate Candidate for the Planned Anesthesia: Yes Alternatives and Risks of Anesthesia Discussed w Pt/Guardian: Yes Pt/Guardian Understands and Agrees with Anesthesia Plan: Yes Additional Comments: translater npo after mn November 11, 2020 some vaginal spotting no BRB on labetalol during pregancy rx stopped no cv problems tob none etoh none obesity bmi 31 par no questions PreAnesthesia Questionnaire - Past Health History Medical/Surgical History: Denies Medical/Surgical History HEENT History: Reports: None Cardiovascular History: Reports: Hypertension Other Cardiovascular History: preeclampsia Respiratory History: Reports: None Gastrointestinal History: Reports: None Genitourinary History: Reports: None [employer]CHIT[employer] History: Reports: , Spontaneous Musculoskeletal History: Reports: None Other Musculoskeletal History: hx fx leg Neurological History: Reports: None Psychiatric History: Reports: None Endocrine/Metabolic History: Reports: None Hematologic History: Reports: None Immunologic History: Reports: None Oncologic (Cancer) History: Reports: None Dermatologic History: Reports: None - Infectious Disease History Infectious Disease History: Reports: Chicken Pox - Past Surgical History Head Surgeries/Procedures: Reports: None HEENT Surgical History: Reports: None Cardiovascular Surgical History: Reports: None Respiratory Surgical History: Reports: None GI Surgical History: Reports: None Female Surgical History: Reports: Section Endocrine Surgical History: Reports: None Neurological Surgical History: Reports: None Musculoskeletal Surgical History: Reports: None Oncologic Surgical History: Reports: None Dermatological Surgical History: Reports: None - SUBSTANCE USE Tobacco Use Status *Q: Never Tobacco User - HOME MEDS Home Medications: Home Meds Hydrocodone/Acetaminophen [Hydrocodone-Acetamin 5-325 mg] 1 tab PO ASDIRECTED PRN 11/19/20 [History] Pnv No.95/Ferrous Fum/Folic AC [ Vitamin Tablet] 1 tab PO DAILY 11/19/20 [History] - CURRENT (IN HOUSE) MEDS Current Meds: Current Medications Lactated Ringer's (Ringers, Lactated) 1,000 mls @ 125 mls/hr IV ASDIRECTED RABIA Last Admin: 11/20/20 08:46 Dose: 125 mls/hr Documented by: Discontinued Medications Dexamethasone (Dexamethasone 4 Mg/Ml 5 Ml Mdv) Confirm Administered Dose 20 mg .ROUTE .STK-MED ONE Stop: 11/20/20 08:51 Fentanyl (Fentanyl 100 Mcg/2 Ml Sdv) Confirm Administered Dose 100 mcg .ROUTE .STK-MED ONE Stop: 11/20/20 08:51 Lidocaine (Lidocaine 2% 5 Ml Sdv) Confirm Administered Dose 5 ml .ROUTE .STK-MED ONE Stop: 11/20/20 08:51 Ondansetron HCl (Ondansetron 4 Mg/2 Ml Sdv) Confirm Administered Dose 4 mg .ROUTE .STK-MED ONE Stop: 11/20/20 08:51 Propofol (Propofol 200 Mg/20 Ml Sdv) Confirm Administered Dose 200 mg .ROUTE .STK-MED ONE Stop: 11/20/20 08:51
[2020-11-20] MEDS ORDERED: fentaNYL 100 MCG/2 ML SDV IVPUSH PRN (09:19)
[2020-11-20] MEDS ORDERED: Carboprost Tromethamine 250 MCG/1 ML Amp ONE (09:25)
[2020-11-20] MEDS ORDERED: Methylergonovine 0.2 MG/1 ML Amp ONE (09:25)
[2020-11-20] MEDS ORDERED: Famotidine 20 MG/2 ML SDV ONE (09:26)
[2020-11-20] MEDS ORDERED: Ketorolac 30 MG/ML SDV ONE (09:49)
--- NOTE | 2020-11-20 09:58 | PCM.OPNOTE ---
- General Post-Op/Procedure Note Date of Surgery/Procedure: 11/20/20 Post-Op Diagnosis: Same Anesthesia Technique: General LMA Primary Surgeon: Ryan Fitch EBL in mLs: 100 Complications: None Condition: Good
--- NOTE | 2020-11-20 09:59 | PCM.DCSUM1 ---
Discharge Summary - Hospital Course Diagnosis: Stroke: No - Discharge Data Discharge Date: 11/20/20 Discharge Disposition: Home, Self-Care 01 Condition: Good - Referral to Home Health Primary Care Physician: PCP None - Patient Instructions Diet: Usual Diet as Tolerated Activity: As Tolerated Driving: Do Not Drive Showering/Bathing: May Shower - Discharge Plan Home Medications: Home Meds Hydrocodone/Acetaminophen [Hydrocodone-Acetamin 5-325 mg] 1 tab PO ASDIRECTED PRN 11/19/20 [History] Pnv No.95/Ferrous Fum/Folic AC [ Vitamin Tablet] 1 tab PO DAILY 11/19/20 [History] - Discharge Summary/Plan Comment DC Time >30 min.: Yes - General Info Date of Service: 11/20/20 Functional Status: Reports: Pain Controlled - Review of Systems General: Reports: No Symptoms HEENT: Reports: No Symptoms Pulmonary: Reports: No Symptoms Cardiovascular: Reports: No Symptoms Gastrointestinal: Reports: No Symptoms Genitourinary: Reports: No Symptoms Musculoskeletal: Reports: No Symptoms Skin: Reports: No Symptoms Neurological: Reports: No Symptoms Psychiatric: Reports: No Symptoms - Patient Data Vitals - Most Recent: Last Vital Signs Temp 36.1 C 11/20/20 08:19 Pulse 98 11/20/20 08:19 Resp 15 11/20/20 08:19 BP 137/88 11/20/20 08:19 Pulse Ox 100 11/20/20 08:19 Weight - Most Recent: 83.007 kg Med Orders - Current: Current Medications Fentanyl (Fentanyl 100 Mcg/2 Ml Sdv) 50 mcg IVPUSH Q5M PRN PRN Reason: Pain (severe 7-10) Stop: 11/21/20 09:20 Lactated Ringer's (Ringers, Lactated) 1,000 mls @ 125 mls/hr IV ASDIRECTED RABIA Last Admin: 11/20/20 08:46 Dose: 125 mls/hr Documented by: Discontinued Medications Carboprost Tromethamine (Carboprost Tromethamine 250 Mcg/1 Ml Amp) Confirm Administered Dose 250 mcg .ROUTE .STK-MED ONE Stop: 11/20/20 09:26 Dexamethasone (Dexamethasone 4 Mg/Ml 5 Ml Mdv) Confirm Administered Dose 20 mg .ROUTE .STK-MED ONE Stop: 11/20/20 08:51 Famotidine (Famotidine 20 Mg/2 Ml Sdv) Confirm Administered Dose 20 mg .ROUTE .STK-MED ONE Stop: 11/20/20 09:27 Fentanyl (Fentanyl 100 Mcg/2 Ml Sdv) Confirm Administered Dose 100 mcg .ROUTE .STK-MED ONE Stop: 11/20/20 08:51 Ketorolac Tromethamine (Ketorolac 30 Mg/Ml Sdv) Confirm Administered Dose 30 mg .ROUTE .STK-MED ONE Stop: 11/20/20 09:50 Lidocaine (Lidocaine 2% 5 Ml Sdv) Confirm Administered Dose 5 ml .ROUTE .STK-MED ONE Stop: 11/20/20 08:51 Methylergonovine Maleate (Methylergonovine 0.2 Mg/1 Ml Amp) Confirm Administered Dose 0.2 mg .ROUTE .STK-MED ONE Stop: 11/20/20 09:26 Ondansetron HCl (Ondansetron 4 Mg/2 Ml Sdv) Confirm Administered Dose 4 mg .ROUTE .STK-MED ONE Stop: 11/20/20 08:51 Propofol (Propofol 200 Mg/20 Ml Sdv) Confirm Administered Dose 200 mg .ROUTE .STK-MED ONE Stop: 11/20/20 08:51 - Exam General: Reports: Alert, Oriented HEENT: Reports: Pupils Equal, Pupils Reactive, EOMI, Mucous Membr. Moist/[place] Neck: Reports: Supple Lungs: Reports: Clear to Auscultation, Normal Respiratory Effort Cardiovascular: Reports: Regular Rate, Regular Rhythm GI/Abdominal Exam: Normal Bowel Sounds, Soft, Non-Tender, No Organomegaly, No Distention, No Abnormal Bruit, No Mass, Pelvis Stable (Female) Exam: Normal External Exam, Normal Speculum Exam, Normal Bimanual Exam Rectal (Female) Exam: Normal Exam, Normal Rectal Tone Back Exam: Reports: Normal Inspection, Full Range of Motion Extremities: Normal Inspection, Normal Range of Motion, Non-Tender, No Pedal Edema, Normal Capillary Refill Skin: Reports: Warm, Dry, Intact Wound/Incisions: Reports: Healing Well Neurological: Reports: No New Focal Deficit Psy/Mental Status: Reports: Alert, Normal Affect, Normal Mood
--- NOTE | 2020-11-20 10:59 | PCM.POSTAN ---
POST ANESTHESIA ASSESSMENT - MENTAL STATUS Mental Status: Alert (no anesthetic problems), Oriented - VITAL SIGNS Vital Signs: Last Vital Signs Temp 97.2 F 11/20/20 10:26 Pulse 93 11/20/20 10:41 Resp 14 11/20/20 10:41 BP 124/77 11/20/20 10:41 Pulse Ox 92 L 11/20/20 10:41 - RESPIRATORY Respiratory Status: Respiratory Rate WNL, Airway Patent, O2 Saturation Stable - CARDIOVASCULAR CV Status: Pulse Rate WNL, Blood Pressure Stable - GASTROINTESTINAL GI Status: No Symptoms - POST OP HYDRATION Hydration Status: Adequate & Stable
--- NOTE | 2020-11-20 12:06 | PCM48HPAN ---
Post Anesthesia Note - EVALUATION WITHIN 48HRS OF ANESTHETIC Vital Signs in Normal Range: Yes Patient Participated in Evaluation: Yes Respiratory Function Stable: Yes Airway Patent: Yes Cardiovascular Function Stable: Yes Hydration Status Stable: Yes Pain Control Satisfactory: Yes Nausea and Vomiting Control Satisfactory: Yes Mental Status Recovered: Yes Vital Signs: Last Vital Signs Temp 97.2 F 11/20/20 10:26 Pulse 90 11/20/20 11:30 Resp 15 11/20/20 11:30 BP 129/94 H 11/20/20 11:30 Pulse Ox 94 L 11/20/20 11:30
--- NOTE | 2020-11-20 14:42 | OR ---
SURGEON: Ryan Fitch MD DATE OF PROCEDURE: 11/20/2020 PREOPERATIVE DIAGNOSIS: bleeding, possible retained products of conception. POSTOPERATIVE DIAGNOSIS: bleeding, possible retained products of conception. OPERATION PERFORMED: Suction curettage with gentle dilation and curettage. PRIMARY SURGEON: Ryan Fitch MD [employer] ARCHITECT: OR anisha. ANESTHESIA: General LMA. ESTIMATED BLOOD LOSS: 100 mL. COMPLICATIONS: None. INDICATION FOR SURGERY: This patient is status post section 10 days ago. She started having vaginal bleeding with passing some what looked like products of conception. I did an ultrasound in the office on her. She had rather large blood clot and possible retained products of conception. Because the patient had bleeding on multiple episodes, so we decided to do a D and E. PROCEDURE: The patient was brought to the OR, properly identified. After adequate level of anesthesia, the patient was placed in lithotomy position, prepped and draped in sterile fashion as usual. A weighted speculum ws placed in vagina, and single- tooth tenaculum into the cervix was done. Using ring forceps, sweeping in the endometrial cavity did not produce any products of conception, so I used 10 suction cannula and gently suctioned and curettaged the endometrial cavity. A small fragment of products of conception was noted and passed and removed with suction curettage. Then, after that, using a large curette, gently curetting the endometrial cavity, I felt that it was empty. I felt there was no more products of conception and there was no bleeding, so the procedure was ended. Instrument and sponge count was correct. The patient tolerated the procedure well, went to recovery room in stable general condition. JURGEN / MATTEO /[id number]
== END 2020-11-20 11:34 | disposition home or self-care (01) ==
LOC: MW.SDS 08:12
PROVIDERS: ATTEND Obstetrics & Gynecology
DX: O72.2 Delayed and secondary postpartum hemorrhage (principal); I10 Essential (primary) hypertension; E66.9 Obesity, unspecified; Z79.82 Long term (current) use of aspirin; Z79.899 Other long term (current) drug therapy; Z68.31 Body mass index [BMI] 31.0-31.9, adult
CPT/HCPCS: 58120; J1100; J1885; J2405; J2704; J3490; J7120; 00940; 88305; J2210; J3010

== ENCOUNTER 2020-11-20 22:37 | Observation (INO) | payer BC ==
[2020-11-20] MEDS ORDERED: Sodium Chloride 0.9% 2.5 ML Syringe FLUSH PRN (23:38)
[2020-11-20] MEDS ORDERED: Sodium Chloride 0.9% 10 ML Syringe FLUSH PRN (23:38)
[2020-11-20] MEDS ORDERED: Sodium Chloride 0.9% 1,000 ML IV ONE (23:38)
[2020-11-20] MEDS ORDERED: Piperacillin/Tazobactam 4.5 GM in Sodium Chloride 0.9% 100 ML IV ONE (23:38)
[2020-11-20 23:58] LABS: BLOOD UREA NITROGEN,BUN 9 mg/dL (7.0-18.0); CARBON DIOXIDE,CO2 19.9 mmol/L (21.0-32.0); CHLORIDE,CL 104 mmol/L (98-107); GLUCOSE RANDOM 115 mg/dL (74-106); POTASSIUM,K 3.5 mmol/L (3.5-5.1); SODIUM,NA 137 mmol/L (136-145)
[2020-11-21] MEDS ORDERED: Iopamidol 755 MG/ML 500 ML Multipack Bottle IVPUSH STA (01:35)
[2020-11-21] MEDS ORDERED: Acetaminophen 500 MG Tab PO ONE ×2 (01:38→12:26)
[2020-11-21] MEDS ORDERED: VANCOmycin 1.5 GM/300 ML 1.5 GM in Premix Bag 1 BAG IV ONE (01:38)
[2020-11-21] MEDS ORDERED: Morphine 4 MG/ML Syringe IVPUSH ONE (02:02)
--- NOTE | 2020-11-21 02:05 | CT ---
INDICATION: Abdominal pain. Recent section and dilatation and curettage. TECHNIQUE: Axial images were obtained from the diaphragm to the pubic symphysis. Reformats were obtained in the coronal and sagittal plane. IV Contrast: 100 cc Isovue 370 Oral Contrast: None COMPARISON: None. FINDINGS: Lower chest: Unremarkable. Liver: Unremarkable. Normal in size and attenuation. No masses. Gallbladder and bile ducts: Unremarkable. No stones or inflammation. No biliary dilatation. Spleen: Unremarkable. Normal in size without mass. Pancreas: Unremarkable. No mass or inflammation. Adrenal glands: Unremarkable. No nodules. Kidneys: Unremarkable. No masses, stones, or hydronephrosis. Vasculature: Unremarkable. GI tract: The stomach is unremarkable. There are no dilated loops of large or small intestine. Fat containing umbilical hernia. Pelvis: Marked distention of the uterus consistent with recent status. Multiple hypodense areas within the anterior uterine body, possibly fibroids. Prominent thickening of the endometrial cavity measuring up to 3.4 centimeters with some internal air. No extrauterine collection/ Bones: Unremarkable for age. IMPRESSION: 1. Marked uterine enlargement with heterogeneous material within the endometrial cavity measuring to 3.4 centimeters, possibly hematoma. Some air within the endometrial cavity which can be seen in recent instrumentation although differential diagnosis includes endometritis. 2. No extrauterine collections identified. Please note that all CT scans at this facility use dose modulation, iterative reconstruction, and/or weight-based dosing when appropriate to reduce radiation dose to as low as reasonably achievable. Dictated by Orlin Perez MD @ 11/21/2020 2:04:[address] Orlin Perez @ Nov 21 2020 2:04AM
--- NOTE | 2020-11-21 03:08 | US ---
TECHNIQUE: Ultrasound pelvis transabdominal and transvaginal. Endovaginal imaging was performed to better visualize the endometrium and ovaries. Real-time sepulveda scale sonographic images with spectral and color Doppler imaging of the ovaries were obtained. COMPARISON: CT 11/21/2020 FINDINGS: Uterus: 15 x 10.7 x 9 cm. The uterine cavity is heterogeneous in appearance with hypoechoic and anechoic material distending the cavity to 3.4 cm in diameter. No vascularity is identified. Normal echotexture of the myometrium noted with no masses are seen. The globular areas of decreased enhancement along the anterior myometrium seen on recent CT have no sonographic correlate. Endometrium: Right ovary: Obscured by bowel gas and cannot be visualized. Left ovary: Obscured by bowel gas and cannot be visualized. Cul-de-sac: No significant ascites noted. IMPRESSION: 1. The uterine cavity is heterogeneous in appearance with hypoechoic and anechoic material distending the cavity to 3.4 cm in diameter. No vascularity is identified. Findings may be due to blood products. Endometritis cannot be excluded by sonography. Dictated by Alessio Terrazas MD @ 11/21/2020 3:06:28 AM Dictated by: Alessio Terrazas MD @ 11/21/2020 03:06:31 (Electronically Signed)
--- NOTE | 2020-11-21 04:11 | EDM.PDOC ---
ED HPI GENERAL MEDICAL PROBLEM - General Chief Complaint: General Stated Complaint: SHAKY, BACK PAIN, SURGERY TODAY Time Seen by Provider: 11/20/20 23:26 - History of Present Illness INITIAL COMMENTS - FREE TEXT/NARRATIVE: *All history and discussions with patient were had with wrapper layer and examiner soft work CHIEF COMPLAINT(S): Fever HISTORY OF PRESENT ILLNESS: This is a 35-year-old woman with a recent section and D&C earlier today for retained products of conception who comes to the emergency department with a chief complaint of fever. The patient states that she is "having chills. She states that she had induced labor on the secondary to preeclampsia and had a section. She states that she then developed a retained products of conception for which she had a D&C earlier today. She states that she was shivering after the anesthesia and they stated that it was from the anesthesia so they sent her home. She states however since that time she is feeling weak, feverish and is experiencing abdominal pain rated 7 out of 10 located in her lower abdominal area and her left chest radiating to her left shoulder. She denies any chest pain, shortness of breath. She states that she has not had any bloody discharge or purulent discharge from her vagina since the D&C. She states that has improved. She has not yet tried any pain medications. She denies any aggravating relieving symptoms. She denies any sick contacts. REVIEW OF SYSTEMS: Constitutional: Positive for fever and chills Eyes: Denies eye pain Ears, Nose, Mouth, & Throat: Denies earache Cardiovascular: Denies chest pain Respiratory: Denies shortness of breath Gastrointestinal: Positive for lower abdominal pain. Denies Nausea, vomiting, diarrhea, hematochezia. Genitourinary: Denies hematuria, dysuria, vaginal bleeding, vaginal discharge Skin:Denies a rash MSK: Denies joint pain Neurological: Denies blurred vision Psychiatric: Denies depression PAST MEDICAL HISTORY: As per history of present illness and as reviewed below otherwise noncontributory. SURGICAL HISTORY: As per history of present illness and as reviewed below otherwise noncontributory. SOCIAL HISTORY: As per history of present illness and as reviewed below otherwi se noncontributory. FAMILY HISTORY: As per history of present illness and as reviewed below otherwise noncontributory. EXAMINATION OF ORGAN SYSTEMS/BODY AREAS: Constitutional: Blood pressure is 122/73, heart rate 155, respiratory rate 20 with an oxygen saturation of 97% on room air. Temperature is 38.8 General: Young woman who does not appear to be in acute distress Psychiatric: Appropriate mood and affect. Eyes: No scleral icterus or conjunctival erythema ENMT: Moist mucous membranes. No pharyngeal erythema Cardiovascular: Tachycardic but regular no gallops, murmurs, or rubs. Bilateral upper extremity pulses symmetric and intact. No peripheral edema. No JVD. Respiratory: Lungs clear to auscultation bilaterally. No wheezes, rales, or rhonchi. Gastrointestinal: Soft, non-tender, non-distended. Normoactive bowel sounds Genitourinary: There is tenderness on the lower abdomen where the incision is located. The appears well without any surrounding erythema. No purulent drainage. No suprapubic tenderness Musculoskeletal: Normal range of motion. Skin: No lesions or abrasions. Neurological: Alert, GCS 15 MEDICAL DECISION MAKING AND COURSE IN THE ED WITH INTERPRETATION/REVIEW OF DIAGNOSTIC STUDIES: This is a 35-year-old woman who just recently had induction of labor secondary to preeclampsia with subsequent section and development of her retained products of conception status post D&C earlier today who comes to the emergency department with abdominal pain who is febrile and tachycardic. At this time I do suspect sepsis secondary to endometritis versus intra-abdominal infection. Will provide the patient with 30 cc/kg normal saline bolus, start the patient on Zosyn and vancomycin and provide the patient with 4 mg of IV morphine. We will provide the patient with Tylenol for fever and pain relief. Will obtain septic labs and obtain a CT abdomen pelvis and a transvaginal ultrasound to evaluate for endometritis or other intra-abdominal abnormalities. groundwater monitoring technician revealed sinus tachycardia. Pulse oximetry with good waveform was 96 to 98% on room air. Laboratory: CBC reveals a leukocytosis of 11.95 with left shift, microcytic anemia with a hemoglobin of 8.6 and hematocrit of 27.6. Lactic acid is 1.7. CMP reveals metabolic acidosis with a bicarbonate of 19.9 and elevated creatinine of 1.1 with hyperglycemia at 115, hypocalcemia at 7.9, hypoalbuminemia at 3.0. Urinalysis was a clean catch and was negative for leukocyte esterase, negative for nitrites, and trace for blood. Interpretation: Hematuria however likely secondary to vaginal bleeding. Negative Time: 2331 Twelve-lead EKG interpreted by myself. Sinus tachycardia at a rate of 139 beats per minute. Normal axis. OR interval is 137 ms. QRS duration is [address] segments are normal without elevations or depressions. T wave inversion in lead III no Q waves present. Hypertrophy not noted. No prior EKGs in our system. Interpretation: Sinus tachycardia The radiological images were viewed by myself along with reading the report from the radiologist. CT abdomen pelvis with contrast reveals marked uterine enlargement with heterogenous material within the endometrial cavity measuring up to 3.4 cm possibly hematoma. There is some air within the endometrial cavity which can be seen in recent instrumentation although differential diagnosis does include endometritis. No extrauterine collections identified. OB transvaginal ultrasound reveals heterogenous hypoechoic and anechoic material distending the cavity to 3.4 cm in diameter. No vascularity is identified. This may be due to blood products however endometritis cannot be excluded. After labs and imaging I did contact Dr. Fitch and he accepted the patient for admission. I did discuss the results with the patient and she was amenable to admission at this time. At the time of reevaluation her heart rate had improved and her pain had also improved. The patient did remain febrile. DISPOSITION: Patient was admitted to the hospital in stable condition CONDITION: Serious PROCEDURES: Cardiac monitoring interpretation, pulse oximetry interpretation FINAL IMPRESSION(S)/DIAGNOSES: 1. Acute sepsis secondary to endometritis Critical Care Procedure Note Authorized and performed by: Pasquale Evans M.D. Critical Care Time: 60 minutes Due to a high probability of clinically significant, life threatening deterioration, the patient required my highest level of preparedness to intervene emergently and I personally spent this critical care time directly and personally managing the patient. This critical care time included obtaining a history, examining the patient, pulse oximetry; ordering and review of studies; arranging urgent treatment with development of a management plan; evaluation of a patients reponse to treatment; frequent assessment; and discussions with other providers. This critical care time was performed to assess and manage the high probability of imminent, life threatening deterioration that could result in multiorgan failure. It was exclusive of separate billable procedures and treating other patients. Please see MDM section and rest of the note for further information on patient assessment and treatment. Please see MDM section and rest of the note for further information on patient assessment and treatment. Pasquale Evans M.D. - Related Data Allergies Allergy/AdvReac Type Severity Reaction Status Date / Time No Known Allergies Allergy Verified 11/20/20 23:40 Home Meds: Home Meds Hydrocodone/Acetaminophen [Hydrocodone-Acetamin 5-325 mg] 1 tab PO ASDIRECTED PRN 11/19/20 [History] Pnv No.95/Ferrous Fum/Folic AC [ Vitamin Tablet] 1 tab PO DAILY 11/19/20 [History] Past Medical History - Past Health History Medical/Surgical History: Denies Medical/Surgical History HEENT History: Reports: None Cardiovascular History: Reports: Hypertension Other Cardiovascular History: preeclampsia Respiratory History: Reports: None Gastrointestinal History: Reports: None Genitourinary History: Reports: None SOD STRIPPER History: Reports: , Spontaneous Musculoskeletal History: Reports: Fracture Other Musculoskeletal History: hx fx leg Neurological History: Reports: None Psychiatric History: Reports: None Endocrine/Metabolic History: Reports: None Hematologic History: Reports: None Immunologic History: Reports: None Oncologic (Cancer) History: Reports: None Dermatologic History: Reports: None - Infectious Disease History Infectious Disease History: Reports: Chicken Pox - Past Surgical History Head Surgeries/Procedures: Reports: None HEENT Surgical History: Reports: None Cardiovascular Surgical History: Reports: None Respiratory Surgical History: Reports: None GI Surgical History: Reports: None Female Surgical History: Reports: Section Endocrine Surgical History: Reports: None Neurological Surgical History: Reports: None Musculoskeletal Surgical History: Reports: None Oncologic Surgical History: Reports: None Dermatological Surgical History: Reports: None Social & Family History - Family History Family Medical History: Unobtainable ED ROS GENERAL - Review of Systems Review Of Systems: See Below ED EXAM, GENERAL - Physical Exam Exam: See Below Course - Vital Signs Last Recorded V/S: Last Vital Signs Temp 38.8 C H 11/21/20 02:27 Pulse 124 H 11/21/20 04:00 Resp 20 11/21/20 04:00 BP 108/39 L 11/21/20 04:00 Pulse Ox 100 11/21/20 04:00 - Orders/Labs/Meds Orders: Active Orders 24 hr Category Date Time Status Admission Status [Patient Status] [ADT] Stat ADT 11/21/20 03:17 Active Blood Pressure Mgt: Sepsis [RC] Q15MX2 Care 11/20/20 23:39 Active CORONAVIRUS COVID-19 PATRICK [MOLEC] Stat Lab 11/21/20 03:41 Received CULTURE BLOOD [BC] Stat Lab 11/20/20 23:32 Received CULTURE BLOOD [BC] Stat Lab 11/20/20 23:50 Results Sodium Chloride 0.9% [Saline Flush] Med 11/20/20 23:38 Active 10 ml FLUSH ASDIRECTED PRN Sodium Chloride 0.9% [Saline Flush] Med 11/20/20 23:38 Active 2.5 ml FLUSH ASDIRECTED PRN Blood Culture x2 Reflex Set [OM.PC] Stat Oth 11/20/20 23:39 Ordered Saline Lock Insert [OM.PC] Stat Oth 11/20/20 23:39 Ordered Severe Sepsis Onset Time [OM.PC] Stat Oth 11/20/20 23:39 Ordered Medication Orders Sodium Chloride (Sodium Chloride 0.9% 10 Ml Syringe) 10 ml FLUSH ASDIRECTED PRN PRN Reason: Keep Vein Open Last Admin: 11/20/20 23:50 Dose: 10 ml Documented by: [id number] Sodium Chloride (Sodium Chloride 0.9% 2.5 Ml Syringe) 2.5 ml FLUSH ASDIRECTED PRN PRN Reason: Keep Vein Open Last Admin: 11/20/20 23:51 Dose: 2.5 ml Documented by: [email or web address] Labs: Laboratory Tests 11/20/20 11/20/20 11/20/20 Range/Units 23:32 23:32 23:32 WBC 11.95 H (4.0-11.0) K/uL RBC 3.57 L (4.30-5.90) M/uL Hgb 8.6 L (12.0-16.0) g/dL Hct 27.6 L (36.0-46.0) % MCV 77.3 L (80.0-98.0) fL MCH 24.1 L (27.0-32.0) pg MCHC 31.2 (31.0-37.0) g/dL RDW Std Deviation 46.8 (28.0-62.0) fl RDW Coeff of Kristi 17 H (11.0-15.0) % Plt Count 397 (150-400) K/uL MPV 8.10 (7.40-12.00) fL Add Manual Diff YES Neutrophils % (Manual) 75 (48.0-80.0) % Band Neutrophils % 18 % Lymphocytes % (Manual) 4 L (16.0-40.0) % Monocytes % (Manual) 2 (0.0-15.0) % Metamyelocytes % 1 % Nucleated RBC % 1.7 /100WBC Absolute Seg Neuts 9.0 H (1.4-5.7) Band Neutrophils # 2.2 Lymphocytes # (Manual) 0.5 L (0.6-2.4) Monocytes # (Manual) 0.2 (0.0-0.8) Absolute Metamyelocyte 0.1 Nucleated RBCs # 0 K/uL Anisocytosis 1+ SLIGHT Lactate 1.7 (0.20-2.00) mmol/L Sodium 137 (136-145) mmol/L Potassium 3.5 (3.5-5.1) mmol/L Chloride 104 (98-107) mmol/L Carbon Dioxide 19.9 L (21.0-32.0) mmol/L BUN 9 (7.0-18.0) mg/dL Creatinine 1.1 H (0.6-1.0) mg/dL Est Cr Clr Drug Dosing 66.19 mL/min Estimated GFR (MDRD) > 60.0 ml/min Glucose 115 H (74-106) mg/dL Calcium 7.9 L (8.5-10.1) mg/dL Total Bilirubin 0.4 (0.2-1.0) mg/dL AST 29 (15-37) IU/L ALT 32 (14-63) IU/L Alkaline Phosphatase 113 (46-116) U/L Total Protein 7.3 (6.4-8.2) g/dL Albumin 3.0 L (3.4-5.0) g/dL Globulin 4.3 H (2.6-4.0) g/dL Albumin/Globulin Ratio 0.7 L (0.9-1.6) Urine Color Urine Appearance Urine pH (5.0-8.0) Ur Specific [place] (1.001-1.035) Urine Protein (NEGATIVE) mg/dL Urine Glucose (UA) (NEGATIVE) mg/dL Urine Ketones (NEGATIVE) mg/dL Urine Occult Blood (NEGATIVE) Urine Nitrite (NEGATIVE) Urine Bilirubin (NEGATIVE) Urine Urobilinogen (<2.0) EU/dL Ur Leukocyte Esterase (NEGATIVE) Urine RBC (0-2/HPF) Urine WBC (0-5/HPF) Ur Epithelial Cells (NONE-FEW) Urine Bacteria (NEGATIVE) 11/21/20 Range/Units 00:40 WBC (4.0-11.0) K/uL RBC (4.30-5.90) M/uL Hgb (12.0-16.0) g/dL Hct (36.0-46.0) % MCV (80.0-98.0) fL MCH (27.0-32.0) pg MCHC (31.0-37.0) g/dL RDW Std Deviation (28.0-62.0) fl RDW Coeff of Kristi (11.0-15.0) % Plt Count (150-400) K/uL MPV (7.40-12.00) fL Add Manual Diff Neutrophils % (Manual) (48.0-80.0) % Band Neutrophils % % Lymphocytes % (Manual) (16.0-40.0) % Monocytes % (Manual) (0.0-15.0) % Metamyelocytes % % Nucleated RBC % /100WBC Absolute Seg Neuts (1.4-5.7) Band Neutrophils # Lymphocytes # (Manual) (0.6-2.4) Monocytes # (Manual) (0.0-0.8) Absolute Metamyelocyte Nucleated RBCs # K/uL Anisocytosis Lactate (0.20-2.00) mmol/L Sodium (136-145) mmol/L Potassium (3.5-5.1) mmol/L Chloride (98-107) mmol/L Carbon Dioxide (21.0-32.0) mmol/L BUN (7.0-18.0) mg/dL Creatinine (0.6-1.0) mg/dL Est Cr Clr Drug Dosing mL/min Estimated GFR (MDRD) ml/min Glucose (74-106) mg/dL Calcium (8.5-10.1) mg/dL Total Bilirubin (0.2-1.0) mg/dL AST (15-37) IU/L ALT (14-63) IU/L Alkaline Phosphatase (46-116) U/L Total Protein (6.4-8.2) g/dL Albumin (3.4-5.0) g/dL Globulin (2.6-4.0) g/dL Albumin/Globulin Ratio (0.9-1.6) Urine Color YELLOW Urine Appearance CLEAR Urine pH 6.0 (5.0-8.0) Ur Specific [place] <= 1.005 (1.001-1.035) Urine Protein NEGATIVE (NEGATIVE) mg/dL Urine Glucose (UA) NEGATIVE (NEGATIVE) mg/dL Urine Ketones NEGATIVE (NEGATIVE) mg/dL Urine Occult Blood TRACE-LYSED H (NEGATIVE) Urine Nitrite NEGATIVE (NEGATIVE) Urine Bilirubin NEGATIVE (NEGATIVE) Urine Urobilinogen 0.2 (<2.0) EU/dL Ur Leukocyte Esterase NEGATIVE (NEGATIVE) Urine RBC 0-2 (0-2/HPF) Urine WBC 0-1 (0-5/HPF) Ur Epithelial Cells FEW (NONE-FEW) Urine Bacteria FEW (NEGATIVE) Meds: Medications Generic Name Dose Route Start Last Admin Trade Name Zoraida PRN Reason Stop Dose Admin Sodium Chloride 10 ml 11/20/20 23:38 11/20/20 23:50 Sodium Chloride 0.9% 10 Ml Syringe FLUSH 10 ml ASDIRECTED PRN Administration Keep Vein Open Sodium Chloride 2.5 ml 11/20/20 23:38 11/20/20 23:51 Sodium Chloride 0.9% 2.5 Ml Syringe FLUSH 2.5 ml ASDIRECTED PRN Administration Keep Vein Open Discontinued Medications Generic Name Dose Route Start Last Admin Trade Name Zoraida PRN Reason Stop Dose Admin Acetaminophen 1,000 mg 11/21/20 01:38 11/21/20 01:57 Acetaminophen 500 Mg Tab PO 11/21/20 01:39 1,000 mg ONETIME ONE Administration Piperacillin Sod/Tazobactam 100 mls @ 100 mls/hr 11/20/20 23:38 11/21/20 00:01 Sod 4.5 gm/ Sodium Chloride IV 11/21/20 00:37 100 mls/hr STAT ONE Administration Vancomycin HCl 2 gm/ Sodium 250 mls @ 167 mls/hr 11/20/20 23:38 11/21/20 01:59 Chloride IV 11/21/20 01:07 Not Given STAT ONE Sodium Chloride 1,000 mls @ 3,000 mls/hr 11/20/20 23:38 11/20/20 23:49 Normal Saline IV 11/20/20 23:57 3,000 mls/hr BOLUS ONE Administration Protocol Vancomycin HCl 1.5 gm/ Premix 300 mls @ 300 mls/hr 11/21/20 01:38 11/21/20 01:56 IV 11/21/20 02:37 300 mls/hr ONETIME ONE Administration Iopamidol 100 ml 11/21/20 01:35 11/21/20 01:36 Iopamidol 755 Mg/Ml 500 Ml Multipack Bottle IVPUSH 11/21/20 01:36 100 ml ONETIME STA Administration Morphine Sulfate 4 mg 11/21/20 02:02 11/21/20 03:00 Morphine 4 Mg/Ml Syringe IVPUSH 11/21/20 02:03 4 mg ONETIME ONE Administration Departure - Departure Time of Disposition: 04:10 Disposition: Admitted As Inpatient 65 Condition: Serious Clinical Impression: Sepsis, Endometritis - Discharge Information *PRESCRIPTION DRUG MONITORING PROGRAM REVIEWED*: No *COPY OF PRESCRIPTION DRUG MONITORING REPORT IN PATIENT KLAUDIA: No Referrals: PCP,None [Primary Care Provider] - Sepsis Event Note (ED) - Evaluation Sepsis Screening Result: Possible Sepsis Risk - Focused Exam Vital Signs: Vital Signs Temp Temp Pulse Resp BP Pulse Ox 11/21/20 04:00 124 H 20 108/39 L 100 11/21/20 03:00 124 H 20 114/75 97 11/21/20 02:27 38.8 C H 11/21/20 02:00 127 H 20 107/77 97 11/21/20 01:57 38.8 C H 11/21/20 01:30 122 H 18 98 11/21/20 00:38 127 H 18 123/81 98 11/20/20 23:54 124/70 11/20/20 23:40 38.8 C H 155 H 20 122/73 97 11/20/20 23:39 126/77 - My Orders Last 24 Hours: My Active Orders 11/20/20 23:32 CULTURE BLOOD [BC] Stat 11/20/20 23:38 Sodium Chloride 0.9% [Saline Flush] 10 ml FLUSH ASDIRECTED PRN Sodium Chloride 0.9% [Saline Flush] 2.5 ml FLUSH ASDIRECTED PRN 11/20/20 23:39 Blood Pressure Mgt: Sepsis [RC] Q15MX2 Blood Culture x2 Reflex Set [OM.PC] Stat Saline Lock Insert [OM.PC] Stat Severe Sepsis Onset Time [OM.PC] Stat 11/20/20 23:50 CULTURE BLOOD [BC] Stat 11/21/20 03:17 Admission Status [Patient Status] [ADT] Stat 11/21/20 03:41 CORONAVIRUS COVID-19 PATRICK [MOLEC] Stat - Assessment/Plan Last 24 Hours: My Active Orders 11/20/20 23:32 CULTURE BLOOD [BC] Stat 11/20/20 23:38 Sodium Chloride 0.9% [Saline Flush] 10 ml FLUSH ASDIRECTED PRN Sodium Chloride 0.9% [Saline Flush] 2.5 ml FLUSH ASDIRECTED PRN 11/20/20 23:39 Blood Pressure Mgt: Sepsis [RC] Q15MX2 Blood Culture x2 Reflex Set [OM.PC] Stat Saline Lock Insert [OM.PC] Stat Severe Sepsis Onset Time [OM.PC] Stat 11/20/20 23:50 CULTURE BLOOD [BC] Stat 11/21/20 03:17 Admission Status [Patient Status] [ADT] Stat 11/21/20 03:41 CORONAVIRUS COVID-19 PATRICK [MOLEC] Stat
[2020-11-21] MEDS: Lactated Ringers 1,000 ML IV SCH ×2 (09:00→18:23)
--- NOTE | 2020-11-21 09:52 | PCM.HP.2 ---
H&P History of Present Illness - General Date of Service: 11/21/20 Admit Problem/Dx: Admission Diagnosis/Problem Admission Diagnosis/Problem Sepsis Source of Information: Patient History Limitations: Reports: No Limitations - History of Present Illness Onset of Symptoms: Reports: Gradual Improves with: Reports: None Worsens with: Reports: None Associated Symptoms: Reports: No Other Symptoms - Related Data Allergies/Adverse Reactions: Allergies Allergy/AdvReac Type Severity Reaction Status Date / Time No Known Allergies Allergy Verified 11/20/20 23:40 Home Medications: Home Meds Hydrocodone/Acetaminophen [Hydrocodone-Acetamin 5-325 mg] 1 tab PO ASDIRECTED PRN 11/19/20 [History] Pnv No.95/Ferrous Fum/Folic AC [ Vitamin Tablet] 1 tab PO DAILY 11/19/20 [History] Past Medical History - Past Health History Medical/Surgical History: Denies Medical/Surgical History HEENT History: Reports: None Cardiovascular History: Reports: Hypertension Other Cardiovascular History: preeclampsia Respiratory History: Reports: None Gastrointestinal History: Reports: None Genitourinary History: Reports: None [employer] History: Reports: , Spontaneous , Other (See Below) Other OB/BYN History: Endometritis Musculoskeletal History: Reports: Fracture Other Musculoskeletal History: hx fx leg Neurological History: Reports: None Psychiatric History: Reports: None Endocrine/Metabolic History: Reports: None Hematologic History: Reports: None Immunologic History: Reports: None Oncologic (Cancer) History: Reports: None Dermatologic History: Reports: None - Infectious Disease History Infectious Disease History: Reports: Chicken Pox - Past Surgical History Head Surgeries/Procedures: Reports: None HEENT Surgical History: Reports: None Cardiovascular Surgical History: Reports: None Respiratory Surgical History: Reports: None GI Surgical History: Reports: None Female Surgical History: Reports: Section, D&C Endocrine Surgical History: Reports: None Neurological Surgical History: Reports: None Musculoskeletal Surgical History: Reports: None Oncologic Surgical History: Reports: None Dermatological Surgical History: Reports: None Social & Family History - Family History Family Medical History: Unobtainable H&P Review of Systems - Review of Systems: Review Of Systems: See Below General: Reports: No Symptoms HEENT: Reports: No Symptoms Pulmonary: Reports: No Symptoms Cardiovascular: Reports: No Symptoms Gastrointestinal: Reports: No Symptoms Genitourinary: Reports: No Symptoms Musculoskeletal: Reports: No Symptoms Skin: Reports: No Symptoms Psychiatric: Reports: No Symptoms Neurological: Reports: No Symptoms Hematologic/Lymphatic: Reports: No Symptoms Immunologic: Reports: No Symptoms Exam - Exam Exam: See Below - Vital Signs Vital Signs: Last Vital Signs Temp 37.1 C 11/21/20 08:16 Pulse 104 H 11/21/20 08:16 Resp 18 11/21/20 08:16 BP 97/64 11/21/20 08:16 Pulse Ox 98 11/21/20 08:16 Weight: 83.007 kg - Exam General: Alert, Oriented, 4 HEENT: PERRLA, Hearing Intact, Mucosa Moist & Peters, Nares Patent, Normal Nasal Septum, Posterior Pharynx Clear, Conjunctiva Clear, EOMI, EACs Clear, TMs Clear Neck: Supple, Trachea Midline, 2 Lungs: Clear to Auscultation, Normal Respiratory Effort Cardiovascular: Regular Rate, Regular Rhythm GI/Abdominal Exam: Normal Bowel Sounds, Soft, Non-Tender, No Organomegaly, No Distention, No Abnormal Bruit, No Mass, Pelvis Stable (Female) Exam: Normal External Exam, Normal Speculum Exam, Normal Bimanual Exam Rectal (Female) Exam: Normal Exam, Normal Rectal Tone Back Exam: Normal Inspection, Full Range of Motion, NT Extremities: Normal Inspection, Normal Range of Motion, Non-Tender, No Pedal Edema, Normal Capillary Refill Skin: Warm, Dry, Intact Neurological: Cranial Nerves Intact, Reflexes Equal Bilateral Neuro Extensive - Mental Status: Alert, Oriented x3, Normal Mood/Affect, Normal Cognition Neuro Extensive - Motor, Sensory, Reflexes: CN II-XII Intact, Normal Gait, Normal Reflexes Psychiatric: Alert, Normal Affect, Normal Mood - Patient Data Lab Results Last 24 hrs: Laboratory Results - last 24 hr 11/20/20 11/20/20 11/20/20 Range/Units 23:32 23:32 23:32 WBC 11.95 H (4.0-11.0) K/uL RBC 3.57 L (4.30-5.90) M/uL Hgb 8.6 L (12.0-16.0) g/dL Hct 27.6 L (36.0-46.0) % MCV 77.3 L (80.0-98.0) fL MCH 24.1 L (27.0-32.0) pg MCHC 31.2 (31.0-37.0) g/dL RDW Std Deviation 46.8 (28.0-62.0) fl RDW Coeff of Kristi 17 H (11.0-15.0) % Plt Count 397 (150-400) K/uL MPV 8.10 (7.40-12.00) fL Add Manual Diff YES Neutrophils % (Manual) 75 (48.0-80.0) % Band Neutrophils % 18 % Lymphocytes % (Manual) 4 L (16.0-40.0) % Monocytes % (Manual) 2 (0.0-15.0) % Metamyelocytes % 1 % Nucleated RBC % 1.7 /100WBC Absolute Seg Neuts 9.0 H (1.4-5.7) Band Neutrophils # 2.2 Lymphocytes # (Manual) 0.5 L (0.6-2.4) Monocytes # (Manual) 0.2 (0.0-0.8) Absolute Metamyelocyte 0.1 Nucleated RBCs # 0 K/uL Anisocytosis 1+ SLIGHT Lactate 1.7 (0.20-2.00) mmol/L Sodium 137 (136-145) mmol/L Potassium 3.5 (3.5-5.1) mmol/L Chloride 104 (98-107) mmol/L Carbon Dioxide 19.9 L (21.0-32.0) mmol/L BUN 9 (7.0-18.0) mg/dL Creatinine 1.1 H (0.6-1.0) mg/dL Est Cr Clr Drug Dosing 66.19 mL/min Estimated GFR (MDRD) > 60.0 ml/min Glucose 115 H (74-106) mg/dL Calcium 7.9 L (8.5-10.1) mg/dL Total Bilirubin 0.4 (0.2-1.0) mg/dL AST 29 (15-37) IU/L ALT 32 (14-63) IU/L Alkaline Phosphatase 113 (46-116) U/L Total Protein 7.3 (6.4-8.2) g/dL Albumin 3.0 L (3.4-5.0) g/dL Globulin 4.3 H (2.6-4.0) g/dL Albumin/Globulin Ratio 0.7 L (0.9-1.6) Urine Color Urine Appearance Urine pH (5.0-8.0) Ur Specific [place] (1.001-1.035) Urine Protein (NEGATIVE) mg/dL Urine Glucose (UA) (NEGATIVE) mg/dL Urine Ketones (NEGATIVE) mg/dL Urine Occult Blood (NEGATIVE) Urine Nitrite (NEGATIVE) Urine Bilirubin (NEGATIVE) Urine Urobilinogen (<2.0) EU/dL Ur Leukocyte Esterase (NEGATIVE) Urine RBC (0-2/HPF) Urine WBC (0-5/HPF) Ur Epithelial Cells (NONE-FEW) Urine Bacteria (NEGATIVE) SARS-CoV-2 RNA (PATRICK) (NEGATIVE) 11/21/20 11/21/20 Range/Units 00:40 03:41 WBC (4.0-11.0) K/uL RBC (4.30-5.90) M/uL Hgb (12.0-16.0) g/dL Hct (36.0-46.0) % MCV (80.0-98.0) fL MCH (27.0-32.0) pg MCHC (31.0-37.0) g/dL RDW Std Deviation (28.0-62.0) fl RDW Coeff of Kristi (11.0-15.0) % Plt Count (150-400) K/uL MPV (7.40-12.00) fL Add Manual Diff Neutrophils % (Manual) (48.0-80.0) % Band Neutrophils % % Lymphocytes % (Manual) (16.0-40.0) % Monocytes % (Manual) (0.0-15.0) % Metamyelocytes % % Nucleated RBC % /100WBC Absolute Seg Neuts (1.4-5.7) Band Neutrophils # Lymphocytes # (Manual) (0.6-2.4) Monocytes # (Manual) (0.0-0.8) Absolute Metamyelocyte Nucleated RBCs # K/uL Anisocytosis Lactate (0.20-2.00) mmol/L Sodium (136-145) mmol/L Potassium (3.5-5.1) mmol/L Chloride (98-107) mmol/L Carbon Dioxide (21.0-32.0) mmol/L BUN (7.0-18.0) mg/dL Creatinine (0.6-1.0) mg/dL Est Cr Clr Drug Dosing mL/min Estimated GFR (MDRD) ml/min Glucose (74-106) mg/dL Calcium (8.5-10.1) mg/dL Total Bilirubin (0.2-1.0) mg/dL AST (15-37) IU/L ALT (14-63) IU/L Alkaline Phosphatase (46-116) U/L Total Protein (6.4-8.2) g/dL Albumin (3.4-5.0) g/dL Globulin (2.6-4.0) g/dL Albumin/Globulin Ratio (0.9-1.6) Urine Color YELLOW Urine Appearance CLEAR Urine pH 6.0 (5.0-8.0) Ur Specific [place] <= 1.005 (1.001-1.035) Urine Protein NEGATIVE (NEGATIVE) mg/dL Urine Glucose (UA) NEGATIVE (NEGATIVE) mg/dL Urine Ketones NEGATIVE (NEGATIVE) mg/dL Urine Occult Blood TRACE-LYSED H (NEGATIVE) Urine Nitrite NEGATIVE (NEGATIVE) Urine Bilirubin NEGATIVE (NEGATIVE) Urine Urobilinogen 0.2 (<2.0) EU/dL Ur Leukocyte Esterase NEGATIVE (NEGATIVE) Urine RBC 0-2 (0-2/HPF) Urine WBC 0-1 (0-5/HPF) Ur Epithelial Cells FEW (NONE-FEW) Urine Bacteria FEW (NEGATIVE) SARS-CoV-2 RNA (PATRICK) NEGATIVE (NEGATIVE) Result Diagrams: 11/20/20 23:32 11/20/20 23:32 Javon Results Last 24 hrs: Microbiology 11/20/20 23:50 Anaerobic Blood Culture - Final Blood - Venous - Lab Draw Sepsis Event Note - Evaluation Sepsis Screening Result: Possible Sepsis Risk - Focused Exam Vital Signs: Vital Signs Temp Temp Pulse Resp BP Pulse Ox 11/21/20 08:16 37.1 C 104 H 18 97/64 98 11/21/20 07:01 36.5 C 104 H 18 112/74 99 11/21/20 04:00 124 H 20 108/39 L 100 11/21/20 03:00 124 H 20 114/75 97 11/21/20 02:27 38.8 C H 11/21/20 02:00 127 H 20 107/77 97 11/21/20 01:57 38.8 C H 11/21/20 01:30 122 H 18 98 11/21/20 00:38 127 H 18 123/81 98 11/20/20 23:54 124/70 11/20/20 23:40 38.8 C H 155 H 20 122/73 97 11/20/20 23:39 126/77 Problem List Initiated/Reviewed/Updated: Yes Orders Last 24hrs: Active Orders 24 hr Category Date Time Status Admission Status [Patient Status] [ADT] Routine ADT 11/21/20 09:39 Active Bedrest Bathroom Privileges [RC] ASDIRECTED Care 11/21/20 09:47 Active Blood Pressure Mgt: Sepsis [RC] [id number] Care 11/20/20 23:39 Active Regular Diet [DIET] Diet 11/21/20 Breakfast Active CBC WITH AUTO DIFF [HEME] Routine Lab 11/22/20 05:11 Ordered COMPREHENSIVE METABOLIC PN,CMP [CHEM] Routine Lab 11/22/20 05:11 Ordered CULTURE BLOOD [BC] Stat Lab 11/20/20 23:32 Received CULTURE BLOOD [BC] Stat Lab 11/20/20 23:50 Results VANCOMYCIN TROUGH [CHEM] Timed Lab 11/22/20 13:30 Ordered Acetaminophen/HYDROcodone [[place] 325-5 MG] Med 11/21/20 09:32 Active 1 tab PO Q4H PRN Lactated Ringers [Ringers, Lactated] 1,000 ml Med 11/21/20 04:15 Active IV ASDIRECTED Pharmacy to Dose - Vancomycin Med 11/21/20 09:45 Active 1 dose .XX ASDIRECTED Sodium Chloride 0.9% [Saline Flush] Med 11/20/20 23:38 Active 10 ml FLUSH ASDIRECTED PRN Sodium Chloride 0.9% [Saline Flush] Med 11/20/20 23:38 Active 2.5 ml FLUSH ASDIRECTED PRN Vancomycin 1.25 gm Med 11/21/20 14:00 Active Sodium Chloride 0.9% [Normal Saline (AdvBag)] 250 ml IV Q12H Blood Culture x2 Reflex Set [OM.PC] Stat Oth 11/20/20 23:39 Ordered Saline Lock Insert [OM.PC] Stat Oth 11/20/20 23:39 Ordered Severe Sepsis Onset Time [OM.PC] Stat Oth 11/20/20 23:39 Ordered Medication Orders Hydrocodone Bitart/Acetaminophen (Acetaminophen/Hydrocodone 325-5 Mg Tab) 1 tab PO Q4H PRN PRN Reason: Pain Lactated Ringer's (Ringers, Lactated) 1,000 mls @ 150 mls/hr IV ASDIRECTED [facility] Last Admin: 11/21/20 09:00 Dose: 150 mls/hr Documented by: VESNA Vancomycin HCl 1.25 gm/ Sodium (Chloride) 250 mls @ 166.667 mls/hr IV Q12H [facility] Sodium Chloride (Sodium Chloride 0.9% 10 Ml Syringe) 10 ml FLUSH ASDIRECTED PRN PRN Reason: Keep Vein Open Last Admin: 11/20/20 23:50 Dose: 10 ml Documented by: ABA Sodium Chloride (Sodium Chloride 0.9% 2.5 Ml Syringe) 2.5 ml FLUSH ASDIRECTED PRN PRN Reason: Keep Vein Open Last Admin: 11/20/20 23:51 Dose: 2.5 ml Documented by: ABA Vancomycin HCl (Pharmacy To Dose - Vancomycin) 1 dose .XX ASDIRECTED [facility] Assessment/Plan Comment:: The patient is status post section 10 days ago she is also status post DNE for possible retained products of conception on 11/20/2020. The patient presented to the ER with lower abdominal pain and high pulse rate and temperature and white count is mildly elevated in the pictures the CAT scan and ultrasound consistent with the patient have endometritis. The clinical picture is consistent with the patient have endometritis. I am admitting the patient to the hospital to start her on IV antibiotic and hydration. - Mortality Measure Prognosis:: Good
[2020-11-21] MEDS: Acetaminophen/HYDROcodone 325-5 MG Tab PO PRN ×3 (10:12→20:07)
[2020-11-21] MEDS: Piperacillin/Tazobactam 3.375 GM in Sodium Chloride 0.9% 100 ML IV SCH ×3 (11:50→22:53)
[2020-11-21] MEDS: VANCOmycin 1.25 GM/250 ML 1.25 GM in Premix Bag 1 BAG IV SCH (14:41)
[2020-11-21] MEDS ORDERED: Sodium Chloride 0.9% 100 ML ONE (22:48)
[2020-11-22] MEDS: Acetaminophen/HYDROcodone 325-5 MG Tab PO PRN ×2 (01:06→07:38)
[2020-11-22] MEDS: VANCOmycin 1.25 GM/250 ML 1.25 GM in Premix Bag 1 BAG IV SCH ×2 (02:06→14:40)
[2020-11-22] MEDS: Piperacillin/Tazobactam 3.375 GM in Sodium Chloride 0.9% 100 ML IV SCH ×4 (04:50→23:40)
[2020-11-22 06:16] LABS: BLOOD UREA NITROGEN,BUN 6 mg/dL (7.0-18.0); CARBON DIOXIDE,CO2 20.1 mmol/L (21.0-32.0); CHLORIDE,CL 107 mmol/L (98-107); GLUCOSE RANDOM 89 mg/dL (74-106); POTASSIUM,K 4.1 mmol/L (3.5-5.1); SODIUM,NA 139 mmol/L (136-145)
[2020-11-22] MEDS: Ibuprofen 800 MG Tab PO PRN ×2 (09:54→23:22)
--- NOTE | 2020-11-22 13:17 | PCM.PN ---
- General Info Date of Service: 11/22/20 Admission Dx/Problem (Free Text): Admission Diagnosis/Problem Admission Diagnosis/Problem Sepsis Subjective Update: Patient is doing better today. Reports headaches have improved. No fever or chills. Vaginal bleeding is minimal. Eating well without nausea or vomiting Functional Status: Reports: Pain Controlled - Review of Systems General: Reports: No Symptoms HEENT: Reports: No Symptoms Pulmonary: Reports: No Symptoms Cardiovascular: Reports: No Symptoms Gastrointestinal: Reports: No Symptoms Genitourinary: Reports: No Symptoms Musculoskeletal: Reports: No Symptoms Skin: Reports: No Symptoms Neurological: Reports: No Symptoms Psychiatric: Reports: No Symptoms - Patient Data Vitals - Most Recent: Last Vital Signs Temp 97.3 F 11/22/20 12:10 Pulse 78 11/22/20 12:10 Resp 16 11/22/20 12:10 BP 133/92 H 11/22/20 12:10 Pulse Ox 99 11/22/20 12:10 Weight - Most Recent: 83.007 kg I&O - Last 24 Hours: Intake & Output 11/21/20 11/22/20 11/22/20 22:59 06:59 14:59 Output Total 925 800 Balance -925 -800 Lab Results Last 24 Hours: Laboratory Results - last 24 hr 11/22/20 11/22/20 Range/Units 05:44 05:44 WBC 11.61 H (4.0-11.0) K/uL RBC 2.94 L (4.30-5.90) M/uL Hgb 7.0 L (12.0-16.0) g/dL Hct 22.9 L (36.0-46.0) % MCV 77.9 L (80.0-98.0) fL MCH 23.8 L (27.0-32.0) pg MCHC 30.6 L (31.0-37.0) g/dL RDW Std Deviation 49.1 (28.0-62.0) fl RDW Coeff of Kristi 17 H (11.0-15.0) % Plt Count 336 (150-400) K/uL MPV 8.30 (7.40-12.00) fL Add Manual Diff YES Neutrophils % (Manual) 79 (48.0-80.0) % Band Neutrophils % 6 % Lymphocytes % (Manual) 12 L (16.0-40.0) % Monocytes % (Manual) 3 (0.0-15.0) % Nucleated RBC % 0.8 /100WBC Absolute Seg Neuts 9.2 H (1.4-5.7) Band Neutrophils # 0.7 Lymphocytes # (Manual) 1.4 (0.6-2.4) Monocytes # (Manual) 0.3 (0.0-0.8) Nucleated RBCs # 0 K/uL Sodium 139 (136-145) mmol/L Potassium 4.1 (3.5-5.1) mmol/L Chloride 107 (98-107) mmol/L Carbon Dioxide 20.1 L (21.0-32.0) mmol/L BUN 6 L (7.0-18.0) mg/dL Creatinine 0.8 (0.6-1.0) mg/dL Est Cr Clr Drug Dosing 91.01 mL/min Estimated GFR (MDRD) > 60.0 ml/min Glucose 89 (74-106) mg/dL Calcium 7.6 L (8.5-10.1) mg/dL Total Bilirubin 0.3 (0.2-1.0) mg/dL AST 31 (15-37) IU/L ALT 34 (14-63) IU/L Alkaline Phosphatase 69 (46-116) U/L Total Protein 5.8 L (6.4-8.2) g/dL Albumin 2.2 L (3.4-5.0) g/dL Globulin 3.6 (2.6-4.0) g/dL Albumin/Globulin Ratio 0.6 L (0.9-1.6) Javon Results Last 24 Hours: Microbiology 11/20/20 23:32 Aerobic Blood Culture - Preliminary Blood - Venous NO GROWTH AFTER 1 DAY Anaerobic Blood Culture - Preliminary 11/20/20 23:50 Aerobic Blood Culture - Preliminary Blood - Venous - Lab Draw NO GROWTH AFTER 1 DAY Anaerobic Blood Culture - Final Med Orders - Current: Current Medications Hydrocodone Bitart/Acetaminophen (Acetaminophen/Hydrocodone 325-5 Mg Tab) 1 tab PO Q4H PRN PRN Reason: Pain Last Admin: 11/22/20 07:38 Dose: 1 tab Documented by: Lactated Ringer's (Ringers, Lactated) 1,000 mls @ 150 mls/hr IV ASDIRECTED [facility] Last Admin: 11/21/20 18:23 Dose: 150 mls/hr Documented by: Vancomycin HCl 1.25 gm/ Premix 250 mls @ 166.667 mls/hr IV Q12H [facility] Last Admin: 11/22/20 02:06 Dose: 166.667 mls/hr Documented by: Piperacillin Sod/Tazobactam (Sod 3.375 gm/ Sodium Chloride) 100 mls @ 200 mls/hr IV Q6H [facility] Last Admin: 11/22/20 11:18 Dose: 200 mls/hr Documented by: Ibuprofen (Ibuprofen 800 Mg Tab) 800 mg PO Q6H PRN PRN Reason: Pain Last Admin: 11/22/20 09:54 Dose: 800 mg Documented by: Sodium Chloride (Sodium Chloride 0.9% 10 Ml Syringe) 10 ml FLUSH ASDIRECTED PRN PRN Reason: Keep Vein Open Last Admin: 11/20/20 23:50 Dose: 10 ml Documented by: Sodium Chloride (Sodium Chloride 0.9% 2.5 Ml Syringe) 2.5 ml FLUSH ASDIRECTED PRN PRN Reason: Keep Vein Open Last Admin: 11/20/20 23:51 Dose: 2.5 ml Documented by: Vancomycin HCl (Pharmacy To Dose - Vancomycin) 1 dose .XX ASDIRECTED [facility] Discontinued Medications Acetaminophen (Acetaminophen 500 Mg Tab) 1,000 mg PO ONETIME ONE Stop: 11/21/20 01:39 Last Admin: 11/21/20 01:57 Dose: 1,000 mg Documented by: Acetaminophen (Acetaminophen 500 Mg Tab) 1,000 mg PO ONETIME ONE Stop: 11/21/20 12:27 Last Admin: 11/21/20 12:37 Dose: 1,000 mg Documented by: Piperacillin Sod/Tazobactam (Sod 4.5 gm/ Sodium Chloride) 100 mls @ 100 mls/hr IV STAT ONE Stop: 11/21/20 00:37 Last Admin: 11/21/20 00:01 Dose: 100 mls/hr Documented by: Vancomycin HCl 2 gm/ Sodium (Chloride) 250 mls @ 167 mls/hr IV STAT ONE Stop: 11/21/20 01:07 Last Admin: 11/21/20 01:59 Dose: Not Given Documented by: Sodium Chloride (Normal Saline) 1,000 mls @ 3,000 mls/hr IV BOLUS ONE; Protocol Stop: 11/20/20 23:57 Last Admin: 11/20/20 23:49 Dose: 3,000 mls/hr Documented by: Vancomycin HCl 1.5 gm/ Premix 300 mls @ 300 mls/hr IV ONETIME ONE Stop: 11/21/20 02:37 Last Admin: 11/21/20 01:56 Dose: 300 mls/hr Documented by: Sodium Chloride (Normal Saline) Confirm Administered Dose 100 mls @ as directed .ROUTE .STK-MED ONE Stop: 11/21/20 22:49 Iopamidol (Iopamidol 755 Mg/Ml 500 Ml Multipack Bottle) 100 ml IVPUSH ONETIME STA Stop: 11/21/20 01:36 Last Admin: 11/21/20 01:36 Dose: 100 ml Documented by: Morphine Sulfate (Morphine 4 Mg/Ml Syringe) 4 mg IVPUSH ONETIME ONE Stop: 11/21/20 02:03 Last Admin: 11/21/20 03:00 Dose: 4 mg Documented by: - Exam General: Alert, Oriented HEENT: Pupils Equal Lungs: Normal Respiratory Effort Cardiovascular: Regular Rate GI/Abdominal Exam: Soft, Non-Tender Extremities: Normal Inspection Psy/Mental Status: Alert, Normal Affect, Normal Mood - Patient Data Lab Results Last 24 hrs: Laboratory Results - last 24 hr 11/22/20 11/22/20 Range/Units 05:44 05:44 WBC 11.61 H (4.0-11.0) K/uL RBC 2.94 L (4.30-5.90) M/uL Hgb 7.0 L (12.0-16.0) g/dL Hct 22.9 L (36.0-46.0) % MCV 77.9 L (80.0-98.0) fL MCH 23.8 L (27.0-32.0) pg MCHC 30.6 L (31.0-37.0) g/dL RDW Std Deviation 49.1 (28.0-62.0) fl RDW Coeff of Kristi 17 H (11.0-15.0) % Plt Count 336 (150-400) K/uL MPV 8.30 (7.40-12.00) fL Add Manual Diff YES Neutrophils % (Manual) 79 (48.0-80.0) % Band Neutrophils % 6 % Lymphocytes % (Manual) 12 L (16.0-40.0) % Monocytes % (Manual) 3 (0.0-15.0) % Nucleated RBC % 0.8 /100WBC Absolute Seg Neuts 9.2 H (1.4-5.7) Band Neutrophils # 0.7 Lymphocytes # (Manual) 1.4 (0.6-2.4) Monocytes # (Manual) 0.3 (0.0-0.8) Nucleated RBCs # 0 K/uL Sodium 139 (136-145) mmol/L Potassium 4.1 (3.5-5.1) mmol/L Chloride 107 (98-107) mmol/L Carbon Dioxide 20.1 L (21.0-32.0) mmol/L BUN 6 L (7.0-18.0) mg/dL Creatinine 0.8 (0.6-1.0) mg/dL Est Cr Clr Drug Dosing 91.01 mL/min Estimated GFR (MDRD) > 60.0 ml/min Glucose 89 (74-106) mg/dL Calcium 7.6 L (8.5-10.1) mg/dL Total Bilirubin 0.3 (0.2-1.0) mg/dL AST 31 (15-37) IU/L ALT 34 (14-63) IU/L Alkaline Phosphatase 69 (46-116) U/L Total Protein 5.8 L (6.4-8.2) g/dL Albumin 2.2 L (3.4-5.0) g/dL Globulin 3.6 (2.6-4.0) g/dL Albumin/Globulin Ratio 0.6 L (0.9-1.6) Result Diagrams: 11/22/20 05:44 11/22/20 05:44 Javon Results Last 24 hrs: Microbiology 11/20/20 23:32 Aerobic Blood Culture - Preliminary Blood - Venous NO GROWTH AFTER 1 DAY Anaerobic Blood Culture - Preliminary 11/20/20 23:50 Aerobic Blood Culture - Preliminary Blood - Venous - Lab Draw NO GROWTH AFTER 1 DAY Anaerobic Blood Culture - Final Sepsis Event Note - Evaluation Sepsis Screening Result: No Definite Risk - Focused Exam Vital Signs: Vital Signs Temp Pulse Resp BP Pulse Ox 11/22/20 12:10 97.3 F 78 16 133/92 H 99 11/22/20 08:15 98.2 F 75 18 121/78 99 11/22/20 03:50 98.6 F 82 16 113/78 98 - Problem List & Annotations (1) Endometritis SNOMED Code(s): 43667660 Code(s): N71.9 - INFLAMMATORY DISEASE OF UTERUS, UNSPECIFIED Status: Acute Current Visit: Yes - Problem List Review Problem List Initiated/Reviewed/Updated: Yes - My Orders Last 24 Hours: My Active Orders 11/22/20 13:11 PACKED CELLS [RED BLOOD CELLS LP] [BBK] Routine - Plan Plan:: The patient is status post section 10 days ago she is also status post DNE for possible retained products of conception on 11/20/2020. The patient presented to the ER with lower abdominal pain and high pulse rate and temperatur e and white count is mildly elevated in the pictures the CAT scan and ultrasound consistent with the patient have endometritis. The clinical picture is consistent with the patient have endometritis. I am admitting the patient to the hospital to start her on IV antibiotic and hydration. 11/22/20: Clinically improved. No fevers. Hgb 7.5 and patient symptomatic (palpitations and fatigue) Will transfuse 2u PRBC Patient agreeable to the plan.
[2020-11-23] MEDS: VANCOmycin 1.25 GM/250 ML 1.25 GM in Premix Bag 1 BAG IV SCH (02:07)
[2020-11-23] MEDS: Piperacillin/Tazobactam 3.375 GM in Sodium Chloride 0.9% 100 ML IV SCH ×2 (05:15→11:07)
[2020-11-23] MEDS: Ibuprofen 800 MG Tab PO PRN (10:34)
[2020-11-23] MEDS ORDERED: Labetalol 100 MG Tab PO ONE (12:30)
--- NOTE | 2020-11-23 16:23 | PCM.DCSUM1 ---
Discharge Summary - Hospital Course Free Text/Narrative:: The patient is status post section 2 weeks ago she is also status post DNE for possible retained products of conception on 11/20/2020. The patient presented to the ER on 11/23/20 with lower abdominal pain and high pulse rate and temperature and white count is mildly elevated in the pictures the CAT scan and ultrasound consistent with the patient have endometritis. The clinical picture is consistent with the patient have endometritis. Patient was then admitted to the hospital and started on IV antibiotic and hydration. Since admission, patient have not had any other fevers. Her WBC went from 11 to 10. and her fundal tenderness greatly improved. Her VS remained stable throughout the stay. Clinically better today, she is agreeable to be switched to PO antibiotics and discharged home. Of note, her BPs increased today and was as high as 150's/100's. Patient remained asymptomatic. She was on labetalol during her . She was then restarted on labetalol. Follow-up in clinic in 1 week. Diagnosis: Stroke: No - Discharge Data Discharge Date: 11/23/20 Discharge Disposition: Home, Self-Care 01 Condition: Good - Referral to Home Health Primary Care Physician: PCP None - Discharge Diagnosis/Problem(s) (1) Endometritis SNOMED Code(s): 73309847 ICD Code: N71.9 - INFLAMMATORY DISEASE OF UTERUS, UNSPECIFIED Status: Acute - Patient Instructions Diet: Regular Diet as Tolerated Activity: As Tolerated - Discharge Plan *PRESCRIPTION DRUG MONITORING PROGRAM REVIEWED*: Not Applicable *COPY OF PRESCRIPTION DRUG MONITORING REPORT IN PATIENT KLAUDIA: Not Applicable Home Medications: Home Meds Hydrocodone/Acetaminophen [Hydrocodone-Acetamin 5-325 mg] 1 tab PO ASDIRECTED PRN 11/19/20 [History] Pnv No.95/Ferrous Fum/Folic AC [ Vitamin Tablet] 1 tab PO DAILY 11/19/20 [History] Patient Handouts: Hypertension Forms: ED Department Discharge Referrals: PCP,None [Primary Care Provider] - - Discharge Summary/Plan Comment DC Time >30 min.: Yes - General Info Date of Service: 11/23/20 Admission Dx/Problem (Free Text: Admission Diagnosis/Problem Admission Diagnosis/Problem Sepsis Functional Status: Reports: Pain Controlled - Review of Systems General: Reports: No Symptoms HEENT: Reports: No Symptoms Pulmonary: Reports: No Symptoms Cardiovascular: Reports: No Symptoms Gastrointestinal: Reports: No Symptoms Genitourinary: Reports: No Symptoms Musculoskeletal: Reports: No Symptoms Skin: Reports: No Symptoms Neurological: Reports: No Symptoms Psychiatric: Reports: No Symptoms - Patient Data Vitals - Most Recent: Last Vital Signs Temp 97.6 F 11/23/20 08:00 Pulse 62 11/23/20 13:40 Resp 19 11/23/20 13:40 BP 139/88 11/23/20 13:40 Pulse Ox 98 11/23/20 13:40 Weight - Most Recent: 83.007 kg I&O - Last 24 hours: Intake & Output 11/23/20 11/23/20 11/23/20 06:59 14:59 22:59 Intake Total 338 Output Total 1000 Balance -662 Lab Results - Last 24 hrs: Laboratory Results - last 24 hr 11/22/20 11/23/20 Range/Units 13:31 05:13 WBC 10.04 (4.0-11.0) K/uL RBC 3.90 L (4.30-5.90) M/uL Hgb 9.8 L (12.0-16.0) g/dL Hct 30.6 L (36.0-46.0) % MCV 78.5 L (80.0-98.0) fL MCH 25.1 L (27.0-32.0) pg MCHC 32.0 (31.0-37.0) g/dL RDW Std Deviation 48.2 (28.0-62.0) fl RDW Coeff of Kristi 17 H (11.0-15.0) % Plt Count 337 (150-400) K/uL MPV 8.70 (7.40-12.00) fL Add Manual Diff YES Neutrophils % (Manual) 55 (48.0-80.0) % Lymphocytes % (Manual) 34 (16.0-40.0) % Monocytes % (Manual) 8 (0.0-15.0) % Metamyelocytes % 1 % Myelocytes % 2 % Nucleated RBC % 1.9 /100WBC Absolute Seg Neuts 5.5 (1.4-5.7) Lymphocytes # (Manual) 3.4 H (0.6-2.4) Monocytes # (Manual) 0.8 (0.0-0.8) Absolute Metamyelocyte 0.1 Absolute Myelocytes 0.2 Nucleated RBCs # 0 K/uL Blood Type B POSITIVE Antibody Screen NEGATIVE Crossmatch See Detail MARK Results - Last 24 hrs: Microbiology 11/20/20 23:32 Aerobic Blood Culture - Preliminary Blood - Venous NO GROWTH AFTER 2 DAYS Anaerobic Blood Culture - Preliminary 11/20/20 23:50 Aerobic Blood Culture - Preliminary Blood - Venous - Lab Draw NO GROWTH AFTER 2 DAYS Anaerobic Blood Culture - Final Med Orders - Current: Current Medications Discontinued Medications Acetaminophen (Acetaminophen 500 Mg Tab) 1,000 mg PO ONETIME ONE Stop: 11/21/20 01:39 Last Admin: 11/21/20 01:57 Dose: 1,000 mg Documented by: Acetaminophen (Acetaminophen 500 Mg Tab) 1,000 mg PO ONETIME ONE Stop: 11/21/20 12:27 Last Admin: 11/21/20 12:37 Dose: 1,000 mg Documented by: Hydrocodone Bitart/Acetaminophen (Acetaminophen/Hydrocodone 325-5 Mg Tab) 1 tab PO Q4H PRN PRN Reason: Pain Last Admin: 11/22/20 07:38 Dose: 1 tab Documented by: Piperacillin Sod/Tazobactam (Sod 4.5 gm/ Sodium Chloride) 100 mls @ 100 mls/hr IV STAT ONE Stop: 11/21/20 00:37 Last Admin: 11/21/20 00:01 Dose: 100 mls/hr Documented by: Vancomycin HCl 2 gm/ Sodium (Chloride) 250 mls @ 167 mls/hr IV STAT ONE Stop: 11/21/20 01:07 Last Admin: 11/21/20 01:59 Dose: Not Given Documented by: Sodium Chloride (Normal Saline) 1,000 mls @ 3,000 mls/hr IV BOLUS ONE; Protocol Stop: 11/20/20 23:57 Last Admin: 11/20/20 23:49 Dose: 3,000 mls/hr Documented by: Vancomycin HCl 1.5 gm/ Premix 300 mls @ 300 mls/hr IV ONETIME ONE Stop: 11/21/20 02:37 Last Admin: 11/21/20 01:56 Dose: 300 mls/hr Documented by: Lactated Ringer's (Ringers, Lactated) 1,000 mls @ 150 mls/hr IV ASDIRECTED [facility] Last Admin: 11/21/20 18:23 Dose: 150 mls/hr Documented by: Vancomycin HCl 1.25 gm/ Premix 250 mls @ 166.667 mls/hr IV Q12H [facility] Last Admin: 11/23/20 02:07 Dose: 166.667 mls/hr Documented by: Piperacillin Sod/Tazobactam (Sod 3.375 gm/ Sodium Chloride) 100 mls @ 200 mls/hr IV Q6H [facility] Last Admin: 11/23/20 11:07 Dose: 200 mls/hr Documented by: Sodium Chloride (Normal Saline) Confirm Administered Dose 100 mls @ as directed .ROUTE .STK-MED ONE Stop: 11/21/20 22:49 Ibuprofen (Ibuprofen 800 Mg Tab) 800 mg PO Q6H PRN PRN Reason: Pain Last Admin: 11/23/20 10:34 Dose: 800 mg Documented by: Iopamidol (Iopamidol 755 Mg/Ml 500 Ml Multipack Bottle) 100 ml IVPUSH ONETIME STA Stop: 11/21/20 01:36 Last Admin: 11/21/20 01:36 Dose: 100 ml Documented by: Labetalol HCl (Labetalol 100 Mg Tab) 200 mg PO ONETIME ONE Stop: 11/23/20 12:31 Last Admin: 11/23/20 12:27 Dose: 200 mg Documented by: Morphine Sulfate (Morphine 4 Mg/Ml Syringe) 4 mg IVPUSH ONETIME ONE Stop: 11/21/20 02:03 Last Admin: 11/21/20 03:00 Dose: 4 mg Documented by: Sodium Chloride (Sodium Chloride 0.9% 10 Ml Syringe) 10 ml FLUSH ASDIRECTED PRN PRN Reason: Keep Vein Open Last Admin: 11/20/20 23:50 Dose: 10 ml Documented by: Sodium Chloride (Sodium Chloride 0.9% 2.5 Ml Syringe) 2.5 ml FLUSH ASDIRECTED PRN PRN Reason: Keep Vein Open Last Admin: 11/20/20 23:51 Dose: 2.5 ml Documented by: Vancomycin HCl (Pharmacy To Dose - Vancomycin) 1 dose .XX ASDIRECTED RABIA - Exam General: Reports: Alert, Oriented Neck: Reports: Supple Lungs: Reports: Normal Respiratory Effort Cardiovascular: Reports: Regular Rate GI/Abdominal Exam: Soft Extremities: Normal Inspection Psy/Mental Status: Reports: Alert, Normal Affect, Normal Mood
== END 2020-11-23 13:55 | disposition home or self-care (01) ==
LOC: MW.ED 22:37 → MW.OB 11-21 03:17 → INTOOBSV 11-21 03:17
PROVIDERS: ADMIT Obstetrics & Gynecology; ATTEND Obstetrics & Gynecology Obstetrics
DX: O86.12 Endometritis following delivery (principal); O90.89 Other complications of the puerperium, not elsewhere classified; I10 Essential (primary) hypertension; D72.829 Elevated white blood cell count, unspecified; Z20.822 Contact with and (suspected) exposure to COVID-19
CPT/HCPCS: 36415; 36430; 74177; 76830; 80053; 80202; 81001; 83605; 85025; 86850; 86900; 86901; 86920; 86921; 86922; 87040; 87635; 93005; 96365; 96366; 96367; 96375; 99291; A9270; J2270; J2543; J3370; J7030; J7120; P9016; Q9967; 93010; 96376; G0378; U0002

== ENCOUNTER 2022-07-04 19:24 | Emergency (ER) | payer BC ==
[2022-07-04] MEDS ORDERED: Sodium Chloride 0.9% 1,000 ML IV ONE ×3 (19:48→22:36)
[2022-07-04] MEDS ORDERED: Ondansetron 4 MG/2 ML SDV IVPUSH ONE (19:48)
[2022-07-04] MEDS ORDERED: Acetaminophen 500 MG Tab PO ONE (20:05)
[2022-07-04 20:32] LABS: CARBON DIOXIDE,CO2 20.1 mmol/L (21.0-32.0); POTASSIUM,K 3.9 mmol/L (3.5-5.1)
[2022-07-04 20:50] LABS: CORONAVIRUS COVID-19 NAA NEGATIVE (NEGATIVE); INFLUENZA A NAA POSITIVE (NEGATIVE); INFLUENZA B NAA NEGATIVE (NEGATIVE); RESPIRATORY SYNCYTIAL VIR NAA NEGATIVE (NEGATIVE)
[2022-07-04] MEDS ORDERED: Oseltamivir 75 MG Cap PO ONE (21:01)
[2022-07-04] MEDS ORDERED: Calcium Carbonate 500 MG Tab.Chew PO ONE (22:36)
== END 2022-07-05 00:24 | disposition home or self-care (01) ==
LOC: MW.ED 19:24
DX: J11.1 Influenza due to unidentified influenza virus with other respiratory manifestations (principal); I10 Essential (primary) hypertension; Z88.6 Allergy status to analgesic agent; Z79.899 Other long term (current) drug therapy; Z20.822 Contact with and (suspected) exposure to COVID-19
CPT/HCPCS: 0241U; 36415; 80053; 83690; 85025; 96361; 96374; 99283; A9270; J2405; J7030

== ENCOUNTER 2023-02-05 05:09 | Emergency (ER) | payer BC ==
[2023-02-05] MEDS ORDERED: Sodium Chloride 0.9% 1,000 ML IV ONE ×2 (06:22→08:17)
[2023-02-05] MEDS ORDERED: Ondansetron 4 MG/2 ML SDV IVPUSH ONE (06:22)
[2023-02-05] MEDS ORDERED: Famotidine 20 MG/2 ML SDV IVPUSH ONE (06:23)
[2023-02-05 06:50] LABS: BASOPHILS PERCENT AUTO 0.3 % (0.0-1.5); EOSINOPHILS PERCENT AUTO 0.1 % (0.0-7.0); HEMATOCRIT 38.6 % (36.0-46.0); HEMOGLOBIN 12.5 g/dL (12.0-16.0); LYMPHOCYTES ABSOLUTE AUTO 1.7 K/uL (0.6-2.4); LYMPHOCYTES PERCENT AUTO 15.6 % (16.0-40.0); MEAN CORPUSCULAR HEMOGLOBIN 27.2 pg (27.0-32.0); MEAN CORPUSCULAR HGB CONC 32.4 g/dL (31.0-37.0); MEAN CORPUSCULAR VOLUME 84.1 fL (80.0-98.0); MONOCYTES ABSOLUTE AUTO 0.8 K/uL (0.0-0.8); MONOCYTES PERCENT AUTO 7.7 % (0.0-15.0); NEUTROPHILS ABSOLUTE AUTO 8.3 K/uL (1.4-5.7); NEUTROPHILS PERCENT AUTO 76.3 % (48.0-80.0); NRBC ABSOLUTE 0 K/uL; PLATELET COUNT,PLT 284 K/uL (150-400); RED BLOOD CELL COUNT 4.59 M/uL (4.30-5.90); WHITE BLOOD CELL COUNT,WBC 10.81 K/uL (4.0-11.0)
[2023-02-05] MEDS ORDERED: Iopamidol 755 MG/ML 500 ML Multipack Bottle IVPUSH ONE (07:04)
[2023-02-05 07:12] LABS: A/G RATIO 0.8 (0.9-1.6); ALANINE AMINOTRANSFERASE,ALT 35 IU/L (14-63); ALBUMIN 3.8 g/dL (3.4-5.0); ALKALINE PHOSPHATASE 76 U/L (46-116); ASPARTATE AMNIOTRANSFERASE,AST 32 IU/L (15-37); BILIRUBIN TOTAL 0.4 mg/dL (0.2-1.0); BLOOD UREA NITROGEN,BUN 9 mg/dL (7.0-18.0); CALCIUM 9.6 mg/dL (8.5-10.1); CARBON DIOXIDE,CO2 23.9 mmol/L (21.0-32.0); CHLORIDE,CL 100 mmol/L (98-107); GLUCOSE RANDOM 109 mg/dL (74-106); LIPASE 132 U/L (73-393); POTASSIUM,K 4.2 mmol/L (3.5-5.1); PROTEIN TOTAL,TP 8.6 g/dL (6.4-8.2); SODIUM,NA 137 mmol/L (136-145)
[2023-02-05 07:13] LABS: ESTIMATED GFR 74 mL/min (>60)
[2023-02-05 07:39] LABS: APPEARANCE,URINE CLEAR; BILIRUBIN,URINE NEGATIVE (NEGATIVE); COLOR,URINE YELLOW; GLUCOSE,URINE NEGATIVE (NEGATIVE); KETONES,URINE NEGATIVE (NEGATIVE); LEUKOCYTE ESTERASE,URINE TRACE (NEGATIVE); NITRITE,URINE NEGATIVE (NEGATIVE); OCCULT BLOOD,URINE SMALL (NEGATIVE); PROTEIN,URINE NEGATIVE (NEGATIVE); UROBILINOGEN,URINE 0.2 EU/dL (<2.0)
[2023-02-05 07:49] LABS: BACTERIA,URINE RARE (NEGATIVE); EPITHELIAL CELLS,URINE RARE (NONE-FEW); RBC,URINE 0-2 (0-2/HPF); WBC,URINE 0-2 (0-5/HPF)
[2023-02-05 08:02] LABS: CREATININE,URINE RAND 66.9 mg/dL; PROTEIN CREATININE RATIO,URINE 0.2; PROTEIN,URINE RANDOM 10.6 mg/dL (<11.9)
[2023-02-05] MEDS ORDERED: Metoclopramide 10 MG/2 ML SDV IVPUSH ONE (08:17)
[2023-02-05] MEDS ORDERED: diphenhydrAMINE 50 MG/ML SDV IVPUSH ONE (08:17)
[2023-02-05] MEDS ORDERED: Ketorolac 30 MG/ML SDV IVPUSH ONE (08:17)
[2023-02-05] MEDS ORDERED: Iopamidol 755 Mg/ML 100 ML Bottle IVPUSH ONE (10:21)
[2023-02-05] MEDS ORDERED: Cefdinir 300 MG Cap PO ONE (10:51)
== END 2023-02-05 11:02 | disposition home or self-care (01) ==
LOC: MW.ED 05:09
DX: O90.89 Other complications of the puerperium, not elsewhere classified (principal); R12 Heartburn; O10.93 Unspecified pre-existing hypertension complicating the puerperium; O99.63 Diseases of the digestive system complicating the puerperium; K21.9 Gastro-esophageal reflux disease without esophagitis; Z88.6 Allergy status to analgesic agent; Z79.899 Other long term (current) drug therapy; Z98.890 Other specified postprocedural states
CPT/HCPCS: 36415; 71046; 74177; 80053; 81001; 82570; 83615; 83690; 83735; 84156; 84703; 85025; 85379; 87086; 96361; 96374; 96375; 99284; A9270; J1200; J1885; J2405; J2765; J3490; J7030

== ENCOUNTER 2023-04-05 09:15 | Day surgery (SDC) | payer BC ==
[~2023-04-05 09:15] MED LIST changes: +Albuterol 0.083% 2.5 MG/3 ML Neb Soln NEB PRN; +HYDROmorphone 1 MG/ML Syringe IVPUSH PRN; +Metoclopramide 10 MG/2 ML SDV IVPUSH PRN; +Morphine 2 MG/ML SYRINGE IVPUSH PRN; +Naloxone 0.4 MG/ML SDV IVPUSH PRN; +Ondansetron 4 MG/2 ML SDV IVPUSH PRN; +Scopolamine 1.5 MG Transdermal Patch TOP ONE; +droPERidol 5 MG/2 ML SDV IVPUSH PRN; +fentaNYL 50 MCG/ML SDV IVPUSH PRN
[2023-04-05 09:52] LABS: HEMOGLOBIN 13.5 g/dL (12.0-16.0); MEAN CORPUSCULAR HEMOGLOBIN 25.6 pg (27.0-32.0); MEAN CORPUSCULAR HGB CONC 32.1 g/dL (31.0-37.0); MEAN CORPUSCULAR VOLUME 79.5 fL (80.0-98.0); MEAN PLATELET VOLUME 9.5 fL (7.40-12.00); RED BLOOD CELL COUNT 5.28 M/uL (4.30-5.90); WHITE BLOOD CELL COUNT,WBC 5.7 K/uL (4.0-11.0)
[2023-04-05] MEDS ORDERED: Lidocaine 2% 11 ML Jelly Filled Syringe ONE (10:31)
[2023-04-05] MEDS ORDERED: Ketorolac 30 MG/ML SDV ONE (10:31)
[2023-04-05] MEDS ORDERED: Lidocaine 2% 5 ML SDV ONE (10:31)
[2023-04-05] MEDS ORDERED: Ondansetron 4 MG/2 ML SDV ONE (10:31)
[2023-04-05] MEDS ORDERED: Dexamethasone 4 MG/ML 5 ML MDV ONE (10:31)
[2023-04-05] MEDS ORDERED: Propofol 200 MG/20 ML SDV ONE (10:32)
[2023-04-05] MEDS ORDERED: fentaNYL 100 MCG/2 ML SDV ONE (10:32)
[2023-04-05] MEDS ORDERED: ceFAZolin 2 GM Vial ONE (11:19)
== END 2023-04-05 12:59 | disposition home or self-care (01) ==
LOC: MW.SDS 09:15
PROVIDERS: ATTEND Obstetrics & Gynecology
DX: N85.8 Other specified noninflammatory disorders of uterus (principal); K21.9 Gastro-esophageal reflux disease without esophagitis; K83.1 Obstruction of bile duct; K25.9 Gastric ulcer, unspecified as acute or chronic, without hemorrhage or perforation; D64.9 Anemia, unspecified; Z87.59 Personal history of other complications of pregnancy, childbirth and the puerperium; Z88.6 Allergy status to analgesic agent; Z79.899 Other long term (current) drug therapy
CPT/HCPCS: 36415; 58558; 85027; 86850; 86900; 86901; A9270; J0131; J0690; J1100; J1885; J2405; J2704; J3010; J7120; 00952; J3490